=== PATIENT | male | born 1950 | race Caucasian/White ===

== ENCOUNTER → 2019-01-08 12:24 | Outpatient (BNVA) | payer BC, SELFPAY | PROVIDERS: PCP Emergency Medicine; Visit Provider Internal Medicine Cardiovascular Disease | DX: I25.10 Atherosclerotic heart disease of native coronary artery without angina pectoris (principal); I10 Essential (primary) hypertension; E78.2 Mixed hyperlipidemia | CPT/HCPCS: 99213 ==

== ENCOUNTER 2019-08-16 07:00 | Outpatient (CLI) | payer MEDICARE, SELFPAY ==
[2019-08-16 12:19] LABS: Hemoglobin A1C 6.4 % (4.5-6.2)
[2019-08-16 12:28] LABS: Calculated LDL 120 mg/dL; Cholesterol 199 mg/dL (50-200); HDL Cholesterol 38 mg/dL (40-60); Triglyceride 209 mg/dL (30-150)
[2019-08-17 10:48] LABS: PSA, Diagnostic 1.6 ng/mL (0.0-4.5)
== END 2019-08-16 07:20 ==
PROVIDERS: PCP Emergency Medicine; Visit Provider Emergency Medicine
DX: E11.9 Type 2 diabetes mellitus without complications (principal); C61 Malignant neoplasm of prostate
CPT/HCPCS: 36415; 80061; 83036; 84153

== ENCOUNTER 2019-08-25 01:19 | Outpatient (CLI) | payer MEDICARE, SELFPAY ==
--- NOTE | 2019-08-25 06:54 | DI.NM_ITS ---
APPROVED REPORT Exam: Exercise Treadmill Patient Location: Out-Patient Room/Bed: Stress Nurse: Vivien Campbell RN BMI: 34.13 Baseline Rhythm: Sinus bradycardia Indications: CAD Medical History Medical History: CAD s/p stent, HTN, Hyperlipidemia Cardiac Medications: Amlodipine, Aspirin, Atorvastatin/ Lipitor, Losartan Allergies: No known drug allergies Previous Cardiac Procedures: PCI Pretest Chest Pain Characteristics: No chest pain Exercise History: Indeterminate Lung Sounds: Clear to auscultation Heart Sounds: Regular Stress Test Details Test: Exercise stress testing was performed using a Clifford protocol. Nuclear Acquisition: Stress Tc-99m/Stress Tc-99m 1 day Rest Isotope: Tc-99m Sestamibi. Dose: 9.7 Date: 08/25/2019 Injection Time: 0825 Stress Isotope: Tc-99m Sestamibi. Dose: 30.6 Date: 08/25/2019 Injection Time: 1005 HR Max Heart Rate (APMHR): 152 bpm Resting HR Supine: 54 bpm Target HR (85% APMHR): 129 bpm Resting HR Standin bpm Max HR Achieved: 135 bpm % of APMHR: 88 Recovery HR: 75 bpm HR response to stress: Normal HR response to stress BP Resting BP Supine: 162/84 mmHg Resting BP Standin/78 mmHg Max BP: 220/80 mmHg Recovery BP: 162/94 mmHg BP response to stress: Abnormal hypertensive response to stress. ECG Resting ECG: Sinus Bradycardia Ectopy: few PACs Stress ECG: Sinus Tachycardia ST Change: No significant ST segment changes Arrhythmia: few PVCs Recovery ECG: Sinus Rhythm Recovery ST Change: No significant ST segment changes Recovery Arrhythmia: None Clinical Time of Stop for Clifford: 0811 Reason for Termination: Target HR Achieved Stress Symptoms: General Fatigue Exercise duration: 8 min11 sec Highest Stage Achieved: Stage 3: 3.4 mph at 14% grade. Exercise capacity: 9.53 METs Functional Capacity: Average Capacity Stress ECG Conclusion 1. Patient exercised for 8 minutes (9.5 METS) which is average for his age. 2. The test was stopped as target heart rate was achieved. 3. There were no changes on the ECG during stress that were suggestive of ischemia. Protocol Used: Clifford Protocol Stress Test Summary STAGE Time (mins) Speed (mph) Grade (%) HR BP SYMPTOMS METS Supine 54 162/84 Standing 55 160/78 1 3 1.7 10 91 164/82 4.6 2 6 2.5 12 114 172/84 7 3 9 3.4 14 135 10.2 4 12 4.2 16 12.9 5 15 5.0 18 17.2 1 min recovery 111 220/80 3 min recovery 78 190/92 6 min recovery 74 174/82 9 min recovery 75 162/94 MPI Conclusion There was no evidence of ischemia on the imaging portion of this exam Ejection fraction with stress was 55% This is a normal SPECT imaging study. Radiologist Interpretation Radiologist agrees with Jacquard Loom Heddles Tier's Interpretation. Radiologist Interpretation by: Wilbur Cooper MD Interpretation Date/Time: 08/25/2019 15:48:54
== END 2019-08-25 01:39 ==
PROVIDERS: PCP Emergency Medicine; Visit Provider Emergency Medicine
DX: I25.10 Atherosclerotic heart disease of native coronary artery without angina pectoris (principal); I10 Essential (primary) hypertension; E78.5 Hyperlipidemia, unspecified
CPT/HCPCS: 78452; 93017

== ENCOUNTER 2021-01-10 09:59 | Outpatient (CLI) | payer MEDICARE, OTHER, SELFPAY ==
--- NOTE | 2021-01-10 10:38 | DI.CT_ITS ---
EXAM: CT HEAD WO CLINICAL HISTORY: concussion. TECHNIQUE: Imaging Protocol: Axial computed tomography images with coronal and sagittal reformatted images were created and reviewed COMPARISON: No exams were available for comparison FINDINGS: There are no skull fractures nor fluid in the visualized paranasal sinuses. There is some mucosal t hickening evident in the floor of the right maxillary sinus. There is no evidence of intracranial hemorrhage, mass effect, or shift of midline structures. There are no extra-axial fluid collections. The ventricles are not enlarged or shifted and there is no blo od within the ventricular system nor within the basal cisterns. There is some periventricular hypodensity which is probably consistent with chronic small vessel dise ase, slightly more prominent on left side left temporoparietal region. In addition, there is a 7 x 4 millimeter hypodensity in the left supraventricular white matter which is probably a nonhemorrhagic lacunar infarct., age indeterminate. IMPRESSION: White matter changes as described above. No evidence of intracranial hemorrhage. Given the above findings recommend follow-up outpatient MRI RADIATION DOSE DELIVERED: 799.16mGy.cm Total DLP DATA REPOSITORY: All CT scans at this facility are submitted to the National Radiology Data Registry (NRDR) Dose Index Registry (DIR) with the [employer] (ACR). RADIATION OPTIMIZATION: All CT scans at this facility use at least one of these dose optimization te chniques: automated exposure control; mA and/or kV adjustment per patient size (includes targeted exa ms where dose is matched to clinical indication); or iterative reconstruction.
== END 2021-01-10 10:19 ==
PROVIDERS: PCP Emergency Medicine; Visit Provider Emergency Medicine
DX: S06.0X9A Concussion with loss of consciousness of unspecified duration, initial encounter (principal); R90.82 White matter disease, unspecified
CPT/HCPCS: 70450

== ENCOUNTER 2021-01-10 11:58 | Outpatient (REF) | payer MEDICARE, OTHER, SELFPAY ==
[2021-01-10 13:46] LABS: Hemoglobin A1C 6.1 % (<5.7)
[2021-01-10 13:50] LABS: Calculated LDL 104 mg/dL (<100); Cholesterol 188 mg/dL (<200); HDL Cholesterol 38 mg/dL (40-60); Triglyceride 231 mg/dL (<150)
== END 2021-01-10 11:59 | disposition home or self-care (01) ==
LOC: LBN 11:58
PROVIDERS: PCP Emergency Medicine; Visit Provider Emergency Medicine
DX: R73.09 Other abnormal glucose (principal); K76.0 Fatty (change of) liver, not elsewhere classified; E78.2 Mixed hyperlipidemia
CPT/HCPCS: 80061; 83036

== ENCOUNTER 2021-01-19 09:02 | Outpatient (CLI) | payer MEDICARE, OTHER, SELFPAY ==
--- NOTE | 2021-01-19 11:30 | DI.RAD_ITS ---
EXAM: XR KNEE LT 3V AP,LAT,BONNIE CLINICAL HISTORY: Left knee pain/swelling M25.562. TECHNIQUE: 2D digital imaging was performed. COMPARISON: No exams were available for comparison FINDINGS: BONES: No acute fracture is present. No bony destructive lesion is seen. JOINTS: The knee is normally aligned. No joint effusion is seen. Joint spaces are well maintained SOFT TISSUE: Minimal vascular calcifications. IMPRESSION: Normal radiographs of the left knee. DATA REPOSITORY: RADIATION DOSE DELIVERED:
== END 2021-01-19 09:22 ==
PROVIDERS: PCP Emergency Medicine; Visit Provider Nurse Practitioner Family
DX: M25.562 Pain in left knee (principal)
CPT/HCPCS: 73562

== ENCOUNTER → 2021-03-22 08:39 | Outpatient (BNVA) | payer MEDICARE, OTHER, SELFPAY | PROVIDERS: PCP Emergency Medicine; Referring Provider Emergency Medicine; Visit Provider Student in an Organized Health Care Education/Training Program | DX: M17.12 Unilateral primary osteoarthritis, left knee (principal) | CPT/HCPCS: 20610; 99213; J1040 ==

== ENCOUNTER → 2021-08-03 07:20 | Outpatient (BNVA) | payer MEDICARE, OTHER, SELFPAY | PROVIDERS: PCP Emergency Medicine; Referring Provider Emergency Medicine; Visit Provider Physical Therapy Assistant | DX: Z12.11 Encounter for screening for malignant neoplasm of colon (principal) ==

== ENCOUNTER 2021-08-29 02:18 | Outpatient (CLI) | payer MEDICARE, OTHER, SELFPAY ==
[2021-08-29 12:19] LABS: Source Nasal/Nares
[2021-08-29 14:35] LABS: COVID-19 PCR Negative (Negative)
== END 2021-08-29 02:19 | disposition home or self-care (01) ==
LOC: LBO 02:18
PROVIDERS: PCP Emergency Medicine; Visit Provider Surgery
DX: Z20.822 Contact with and (suspected) exposure to COVID-19 (principal)
CPT/HCPCS: 87635

== ENCOUNTER 2021-08-31 06:53 | Day surgery (SDC) | payer MEDICARE, OTHER, SELFPAY ==
--- NOTE | 2021-08-30 17:09 | PDOC.DSDIS_ITS ---
Discharge Plan Disposition Patient Disposition: HOME Condition: Good Discharge Details Reason For Visit: colon scope Attending Provider: Michela Wheeler Primary Care Provider: Patrick Eric Home Meds and New Rx's Prescriptions: Continued multivitamin 1 EACH tablet 1 tab PO DAILY RF: 0 aspirin [Aspirin Low-Strength] 81 MG tablet,chewable 81 mg PO DAILY RF: 0 nitroglycerin [Nitrostat] 0.4 MG tablet, sublingual 0.4 mg Sublingual PRN Qty: 25 RF: 4 metoprolol succinate 100 mg tablet extended release 24 hr 50 mg PO DAILY Qty: 90 RF: 3 amlodipine 10 mg tablet 10 mg PO DAILY Qty: 90 RF: 3 paroxetine HCl 30 mg tablet 30 mg PO DAILY Qty: 90 RF: 3 atorvastatin 80 mg tablet 80 mg PO DAILY Qty: 90 RF: 3 losartan [Cozaar] 100 mg tablet 100 mg PO DAILY Qty: 90 RF: 3 Discontinued polyethylene glycol 3350 17 gram/dose powder 238 g PO ONCE Qty: 238 RF: 0 bisacodyl [Dulcolax (bisacodyl)] 5 mg tablet,delayed release (DR/EC) 5 mg PO ONCE Qty: 4 RF: 0 Discharge Instructions Additional Instructions: [facility] Colonoscopy Post- Op Instructions Instructions for Everyone who is given Anesthesia: For your safety, please do the following for the next twenty-four (24) hours: *Do Not operate a motor vehicle (car, truck, motorcycle, etc.) *Do Not drink alcoholic beverages or use any recreational drugs for the first 24 hours or while taking pain medications. The medications in your body may have a reaction that can be dangerous. *Do Not make any important decisions or sign any important papers. Findings:diverticula Follow up: Does not require any further colonoscopies, unless you experience unexplained weight loss, rectal bleeding, or changes in your bowel habits. 1. No lifting over 20 pounds or strenuous activity for the first 24 hours after your procedure. After 24 hours there are no restrictions on your activity but you may feel fatigued for a few days. 2. After you arrive home you may have a light meal and return to your normal diet as you can tolerate it without feeling sick to your stomach. 3. You may have a bloated, gaseous feeling in your belly (abdomen) after a colonoscopy. Passing gas and belching will help. Walking or lying down on your left side with your knees flexed may relieve the discomfort. Call the office at [phone] (Office) or [phone] (Hospital) right away if you notice any of the following: a.Vomiting of blood or ?coffee ground stools?. b.Rectal bleeding 1Tbsp, blood clots or continuous bleeding. c.Severe belly (abdominal) pain. d.A hard distended belly (abdomen) and an inability to pass gas. 4. Please don?t expect to have a normal BM (bowel movement) for 2-3 days after your procedure. 5. If there are questions regarding the findings of your procedure, please contact your doctor 6. If you are unable to contact your doctor with a problem, contact the hospital at [phone]. 7. Continue all your regular medications unless directed otherwise. I understand the above instructions and have no questions. Signature of Patient or Adult Escort Name of Responsible Adult Escort Signature of Nurse Date/Time Activity:: see above Diet:: see above Discharge Orders Discharge Orders: Discharge Order (Routine); Ordered 08/30/21 Ordered By: Michela Wheeler DS: Diagnosis Discharge Diagnosis (1) Diverticulosis: Status: Acute (2) Internal hemorrhoid: Status: Acute
--- NOTE | 2021-08-30 17:11 | W.COLOREPORT ---
Colonoscopy Report Date of procedure: 08/31/21 Pre-op diagnosis general: CRC screen Post-op diagnosis procedure note: other (diverticula ) Surgeon: Michela Wheeler Anesthesia Type: General LMA/ETT Pathology: none sent Complications: None Disposition: same day Prep: Miralax/Dulcolax Retraction Time: 8 Procedure Description: After informed consent was obtained the patient was taken to the procedure room and placed in a left decubitous position. Monitors were applied and a time out was done. The patients name, date of , procedure, allergies to medications and metal in their body was reviewed. The patient was then sedated. Once sedated and comfortable a rectal exam was done. External exam shows external hemorrhoidal tags. The internal exam revealed a normal sphincter tone and no palpable masses. The scope was then introduced and retrofelexed. Grade I internal hemorrhoids were identified. The scope was then advanced to the cecum w/out difficulty. The TI and appendiceal orifice were identified. The prep was good. The scope was then slowly retracted over 8 minutes back into the rectum. There are no polyps or AVMs. He has moderate diverticula confined to the sigmoid colon with no signs of active bleeding or infection. The scope was removed and the patient was woken up and taken back to Same day surgery in stable condition. The patient tolerated the procedure well and there were no immediate complications. Follow up: The patient does not require any further screening colonoscopies, unless they develop changes in bowel habits or other new gastrointestinal complaints.
[2021-08-31 07:13] VITALS: BP 140/84; PULSE 64; RESP 17; TEMP 36; O2SAT 95
[2021-08-31] MEDS: Lactated Ringers 1,000 ML 80 ML IV (07:43)
--- NOTE | 2021-08-31 07:47 | W.ANESPRE ---
General Info Date of Service Date Performed: 08/31/21 Height: 5 ft 7 in Weight: 99.6 kg Body Mass Index (BMI): 34.4 Surgical Procedure: Operation Date: 08/31/21 08:20 Proposed Procedures Side Surgeon ralph Wheeler, DO Meds Allergies and Home Medications Allergies Allergy/AdvReac Type Severity Reaction Status Date / Time No Known Allergies Allergy Verified 08/31/21 07:25 Home Medication Medication Instructions Recorded multivitamin 1 tab PO DAILY 02/16/13 aspirin [Aspirin Low-Strength] 81 mg PO DAILY tab-cap 06/15/14 nitroglycerin [Nitrostat] 0.4 mg SUBLINGUAL PRN #25 tab 11/04/17 metoprolol succinate 100 mg 50 mg PO DAILY #90 tab 02/14/20 tablet,extended release 24 hr amlodipine 10 mg tablet 10 mg PO DAILY #90 tab-cap 02/28/21 paroxetine HCl 30 mg tablet 30 mg PO DAILY #90 tab 02/28/21 atorvastatin 80 mg tablet 80 mg PO DAILY #90 tab 06/21/21 losartan 100 mg tablet 100 mg PO DAILY #90 tab-cap 08/10/21 Current Visit Medications: Current Medications Generic Name Dose Route Start Last Admin Trade Name Freq PRN Reason Stop Dose Admin Hyoscyamine Sulfate 0.125 mg 08/30/21 17:08 Hyoscyamine 0.125 Mg Sl/Oral/Chew SL DIRECTED PRN Ringer's Solution 1,000 mls @ 80 mls/hr 08/31/21 06:00 08/31/21 07:43 IV 09/29/21 23:59 80 mls/hr INFUSION KM Administration IV Miscellaneous Supplies 1 each 08/31/21 06:00 Iv Access IV 09/29/21 23:59 DIRECTED KM Ondansetron HCl 4 mg 08/30/21 17:08 Ondansetron 4 Mg/2 Ml Vial IVP Q4H PRN PRN Nausea / Vomiting Sodium Chloride 0 ml 08/31/21 06:00 Normal Saline Flush 10 Ml Syr IV 09/29/21 23:59 PRN PRN Sodium Chloride 0 ml 08/31/21 06:00 Normal Saline 10 Ml Vial IJ 09/29/21 23:59 DIRECTED PRN Sterile Water 0 ml 08/31/21 06:00 Water,Injection,Sterile 10 Ml Vial IJ 09/29/21 23:59 DIRECTED PRN [facility] Active Problems Active Problems: Problem Status Onset Code Heavy alcohol use 09/21/13 Z78.9 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 10/22/17 I83.90 Sciatica, left side 11/04/17 M54.32 Non-alcoholic fatty liver disease 09/21/13 K76.0 Hyperlipidemia E78.5 Gout, unspecified 08/20/16 M10.9 Gastroesophageal reflux disease without esophagitis 10/22/17 K21.9 GERD (gastroesophageal reflux disease) 09/21/13 K21.9 Essential hypertension 07/12/13 I10 Diverticulosis K57.90 Depressive disorder F32.9 Atherosclerosis of [place] coronary artery I25.10 Elevated glucose R73.09 Obesity (BMI 30-39.9) E66.9 Concussion S06.0X9A Primary osteoarthritis of left knee M17.12 Medical History Active Problem List (Updated 08/31/21 @ 08:06 by Karolina Voss RN) Heavy alcohol use (Acute 09/21/13) Varicosities of leg (Acute 09/21/13) Varicosities of leg (Acute 10/22/17) Sciatica, left side (Acute 11/04/17) Non-alcoholic fatty liver disease (Acute 09/21/13) Hyperlipidemia (Acute) Gout, unspecified (Acute 08/20/16) Gastroesophageal reflux disease without esophagitis (Acute 10/22/17) GERD (gastroesophageal reflux disease) (Acute 09/21/13) Essential hypertension (Acute 07/12/13) Diverticulosis (Acute) Depressive disorder (Acute) Atherosclerosis of [place] coronary artery (Acute) Elevated glucose (Acute) Obesity (BMI 30-39.9) (Acute) Concussion (Acute) Primary osteoarthritis of left knee (Acute) Medical History (Updated 08/31/21 @ 08:06 by Karolina Voss RN) HTN (hypertension) Surgical History Surgical History Colonoscopy - MAC 2009 Extraction of cataract 08/27/17 (OD) 08/11/17 (OS) History of back surgery Hx of heart artery stent thumb surgery Surgical revision of DJD of both thumbs. Tobacco Smoking/Tobacco Use Status: Never Passive smoking exposure: Yes Second hand exposure: Yes Alcohol Alcohol Intake: current Alcohol intake frequency: a few times a week Alcohol type: beer Substance Use Substance use: Never Substance use type: does not use Vital Signs and Lab Results Vital Signs Most Recent Vital Signs in EMR: Most Recent Vital Signs Temp Pulse Resp BP Pulse Ox 36.0 C L 64 17 140/84 95 08/31/21 07:13 08/31/21 07:13 08/31/21 07:13 08/31/21 07:13 08/31/21 07:13 Lab Results Blood Type / Crossmatch: No Data to Display Complete Blood Count: No Data to Display Complete Metabolic Panel: No Data to Display Liver Function Panel: No Data to Display Coagulation Panel: No Data to Display Cardiac Panel: No Data to Display Arterial Blood Gas: No Data to Display Venous Blood Gas: No Data to Display Pancreas Panel: No Data to Display Thyroid Panel: No Data to Display Infectious Disease: Coronavirus (COVID-19)(PCR) Negative (Negative) 08/29/21 08:35 08/29/21 Coronavirus 2019 Source Nasal/Nares 08/29/21 08:35 08/29/21 Blood Cultures: No Data to Display Toxicology Panel: No Data to Display Imaging and Studies Imaging and Studies Stress Test Summary: Stress ECG Conclusion 1. Patient exercised for 8 minutes (9.5 METS) which is average for his age. 2. The test was stopped as target heart rate was achieved. 3. There were no changes on the ECG during stress that were suggestive of ischemia. 08/25/19 Anesthesia Assessment and Plan Anesthesia History Personal History: No History of Anesthesia Complications Family History: No Family History of Anesthesia Complications Exercise Tolerance Exercise Tolerance: Metabolic Equivalents>4 Pertinent Negatives Pertinent Negatives: No Symptoms of GERD, No Major Cardiovascular Symptoms or Complaints (Hx of stents greater than 2 years ago. ) and No Major Pulmonary Symptoms or Complaints Cardiac & Pulmonary Exam Cardiac Exam: Normal S1/S2 Heart Sounds Pulmonary Exam: Clear Bilateral Breath Sounds Implantable Cardiac Device Does patient have a Pacemaker or an ICD?: No Airway Exam Known Difficult Airway: No Mallampati Class: 2 Mouth Opening: Normal (> 3cm) Thyromental Distance: Greater than 3 cm Neck Range of Motion: Full ROM Neck Circumference: Normal Teeth Condition: Normal Dentition ASA Classification ASA Score: ASA 2 Emergency Case?: No NPO Status NPO Status: NPO Clears >2 hours, Solids >8 hours Anesthesia Plan Resuscitation Status: Full Code Anesthesia Technique: General Anesthesia Airway Planned: Natural Airway Monitors Used: Standard Monitors
[2021-08-31 08:08] VITALS: BMI 34.4
[2021-08-31 08:44] VITALS: BP 103/72; PULSE 58; RESP 18; TEMP 36.3; O2SAT 94
--- NOTE | 2021-08-31 09:00 | W.ANESPOSTOP ---
Postoperative Evaluation Date, Time and Location Date Performed: 08/31/21 Time Performed: 08:44 Patient Location: Day Surgery Unit Vital Signs Most Recent Imported Vital Signs: Most Recent Vital Signs Temp Pulse Resp BP Pulse Ox 36.3 C L 58 L 18 103/72 94 08/31/21 08:44 08/31/21 08:44 08/31/21 08:44 08/31/21 08:44 08/31/21 08:44 Pain Score Most Recent Pain Score: Most Recent Pain Score Pain Level 0 08/31/21 08:44 Assessment Mental Status: Awake (Alert & Oriented to Patient Baseline) Airway and Respiratory Function: Patent airway with normal (patient baseline) respiratory exam Cardiovascular Function: Hemodynamically Stable Hydration Status: Adequately Hydrated Nausea & Vomiting: No Nausea or Vomiting Pain: Pt. Denies Any Pain Peripheral Nerve Block: Patient did not receive a nerve block
[2021-08-31 09:20] VITALS: BP 119/82; PULSE 61; RESP 17; TEMP 36.8; O2SAT 95
--- NOTE | 2021-08-31 11:35 | NUR.NOTE ---
Nursing Note:Pt dropped his Nitro bottle in the [facility] bathroom. Pt was called and he asked if we could just discard them, as he had more at home and these he had had them forever. Pt stated he always takes a bottle when he goes out. Pt did verbalize he had another bottle in my hand at home.
== END 2021-08-31 09:42 | disposition home or self-care (01) ==
LOC: SUR 06:54
PROVIDERS: PCP Emergency Medicine; Visit Provider Surgery
PROC: 0DJD8ZZ Inspection of Lower Intestinal Tract, Via Natural or Artificial Opening Endoscopic (ICD-10-PCS; CPT 45378; principal; 2021-08-31 08:15)
DX: Z12.11 Encounter for screening for malignant neoplasm of colon (principal); K57.30 Diverticulosis of large intestine without perforation or abscess without bleeding; K21.9 Gastro-esophageal reflux disease without esophagitis; K76.0 Fatty (change of) liver, not elsewhere classified; R73.9 Hyperglycemia, unspecified
CPT/HCPCS: G0105; J2001

== ENCOUNTER → 2021-12-27 10:26 | Outpatient (BNVA) | payer MEDICARE, OTHER, SELFPAY | PROVIDERS: PCP Emergency Medicine; Referring Provider Emergency Medicine; Visit Provider Internal Medicine Cardiovascular Disease | DX: I10 Essential (primary) hypertension (principal); I25.10 Atherosclerotic heart disease of native coronary artery without angina pectoris | CPT/HCPCS: 99213 ==

== ENCOUNTER 2022-06-19 08:26 | Outpatient (CLI) | payer MEDICARE, SELFPAY ==
[2022-06-19 12:37] LABS: Anion Gap 7.9 mmol/L (3-11); BUN 18 mg/dL (7-18); CO2 30.1 mmol/L (21.0-32.0); CREATININE 1.2 mg/dL (0.70-1.30); Calcium 9.4 mg/dL (8.5-10.1); Calculated LDL 93 mg/dL (<100); Chloride 102 mmol/L (98-107); Cholesterol 185 mg/dL (<200); Estimated GFR 64.65 (mL/min/1.73m2); Glucose 112 mg/dL (74-106); HDL Cholesterol 42 mg/dL (40-60); Potassium 4.6 mmol/L (3.5-5.1); Sodium 140 mmol/L (136-145); Triglyceride 252 mg/dL (<150)
[2022-06-19 13:01] LABS: Hemoglobin A1C 6.1 % (<5.7)
[2022-06-20 09:43] LABS: ALT 53 U/L (16-63); AST 39 U/L (15-37); Albumin 4.1 g/dL (3.4-5.0); Alkaline Phosphatase 39 U/L (46-116); Bilirubin, Total 0.5 mg/dL (0.2-1.0); Total Protein 8.2 g/dL (6.4-8.2)
== END 2022-06-19 08:27 | disposition home or self-care (01) ==
PROVIDERS: PCP Family Medicine; Visit Provider Family Medicine
DX: E78.5 Hyperlipidemia, unspecified (principal); I10 Essential (primary) hypertension; R73.9 Hyperglycemia, unspecified
CPT/HCPCS: 36415; 80048; 80053; 80061; 83036

== ENCOUNTER 2022-12-27 08:30 | Outpatient (CLI) | payer OTHER, SELFPAY ==
--- NOTE | 2022-12-27 08:30 | RT.EKG_ITS ---
APPROVED REPORT Exam: Resting ECG Reason for Exam: CAD Patient Location: O HR:57 bpm ECG Measurements Heart Rate 57 AXIS NM 173 P 32 QRSd 94 QRS 12 QT 426 T 0 QTc 415 Conclusion Sinus rhythm...normal P axis, V-rate 50- 99 Normal Electrocardiogram
== END 2022-12-27 08:31 | disposition home or self-care (01) ==
LOC: DI.CARD 08:31
PROVIDERS: PCP Family Medicine; Visit Provider Internal Medicine Cardiovascular Disease
DX: I25.10 Atherosclerotic heart disease of native coronary artery without angina pectoris (principal)
CPT/HCPCS: 93010

== ENCOUNTER → 2022-12-27 10:28 | Outpatient (BNVA) | payer OTHER, SELFPAY | PROVIDERS: PCP Family Medicine; Visit Provider Internal Medicine Cardiovascular Disease | DX: Z95.5 Presence of coronary angioplasty implant and graft (principal); I10 Essential (primary) hypertension; E78.2 Mixed hyperlipidemia; I25.10 Atherosclerotic heart disease of native coronary artery without angina pectoris | CPT/HCPCS: 93005; 99214 ==

== ENCOUNTER → 2023-05-07 01:56 | Outpatient (CLI) | payer OTHER, SELFPAY ==
--- NOTE | 2023-05-07 08:50 | DI.MRI_ITS ---
Exam(s) MR UPPER JOINT LT WO EXAM: MR UPPER JOINT LT WO CLINICAL HISTORY: evaluate pathology,biceps tendon rupture, [id number],strain. TECHNIQUE: Multiplanar multisequence MRI was performed. COMPARISON: Most recent plain film is 21 April 2017 FINDINGS: Exam is limited by patient motion. BONES: There is no fracture or contusion pattern. JOINTS:The acromioclavicular joint shows mild spurring. The acromion is laterally downsloping. The glenohumeral joint shows mild degenerative changes. TENDONS: Supraspinatus: Some thickening consistent with tendinosis. Tear of the anterior portion of the tendo n distally near the insertion. Infraspinatus: Unremarkable. Subscapularis: Unremarkable. Teres Minor: Unremarkable. Biceps and Reinbeck: The biceps anchor appears indistinct. The majority of the long head of the biceps tendon is not visible consistent with full-thickness tear and retraction, at of the field of view. Fluid within tendon sheath. Short head of the biceps tendon appears intact. MUSCLES: Unremarkable. GLENOID LABRUM: Unremarkable on this noncontrast examination. SOFT TISSUES: Unremarkable. OTHER: Subacromial and subdeltoid bursae . Fluid in the subcoracoid bursa and around subscapularis muscle. IMPRESSION: Proximal biceps tendon rupture. Focal tear distal anterior portion of the supraspinatus tendon. Supraspinatus tendinosis DATA REPOSITORY:
== END ==
PROVIDERS: PCP Family Medicine; Visit Provider Nurse Practitioner Family
DX: S46.012A Strain of muscle(s) and tendon(s) of the rotator cuff of left shoulder, initial encounter (principal); S46.122A Laceration of muscle, fascia and tendon of long head of biceps, left arm, initial encounter; X58.XXXA Exposure to other specified factors, initial encounter
CPT/HCPCS: 73221

== ENCOUNTER 2023-05-28 16:04 | Outpatient (CLI) | payer OTHER, SELFPAY ==
--- NOTE | 2023-05-28 14:57 | DI.RAD_ITS ---
Exam(s) XR SHOULDER LT COMPLETE 2+V EXAM: XR SHOULDER LT COMPLETE 2+V CLINICAL HISTORY: shoulder f/u. TECHNIQUE: 2D digital imaging was performed. Two views. COMPARISON: CR LEFT SHOULDER COMPLETE from 04/21/2017 CR CHEST 2 VIEWS PA,LAT from 12/23/2017 MR MR UPPER JOINT LT WO from 05/07/2023 FINDINGS: BONES: No acute fracture is present. No bony destructive lesion is seen. And JOINTS: No dislocation present. Degenerative changes at the acromial clavicular joint with adjacent inferior bony density. Some spurring at the tip of the acromion. Anterior projection of the distal 3rd adjacent bony density, also unchanged. Mild spurring at the glenoid. Glenohumeral joint space i s maintained. SOFT TISSUE: Normal. IMPRESSION: Stable degenerative changes. DATA REPOSITORY: RADIATION DOSE DELIVERED:
== END 2023-05-28 16:05 | disposition home or self-care (01) ==
LOC: DIORS 16:04
PROVIDERS: PCP Family Medicine; Referring Provider Family Medicine; Visit Provider Student in an Organized Health Care Education/Training Program
DX: S46.212D Strain of muscle, fascia and tendon of other parts of biceps, left arm, subsequent encounter; X58.XXXD Exposure to other specified factors, subsequent encounter; M75.102 Unspecified rotator cuff tear or rupture of left shoulder, not specified as traumatic
CPT/HCPCS: 99203; 99213; 73030

== ENCOUNTER → 2023-09-03 13:02 | Outpatient (BNVA) | payer OTHER, SELFPAY | PROVIDERS: PCP Family Medicine; Referring Provider Family Medicine; Visit Provider Student in an Organized Health Care Education/Training Program | DX: S46.212D Strain of muscle, fascia and tendon of other parts of biceps, left arm, subsequent encounter (principal); X58.XXXD Exposure to other specified factors, subsequent encounter; M75.102 Unspecified rotator cuff tear or rupture of left shoulder, not specified as traumatic | CPT/HCPCS: 20610; J1030 ==

== ENCOUNTER 2023-10-24 01:56 | Outpatient (CLI) | payer OTHER, SELFPAY ==
[2023-10-24 12:57] LABS: Abs Immature Grans 0.01 10^3/uL (0.0-0.06); Absolute Basophil Count 0.04 10^3/uL (0.0-0.2); Absolute Eosinophil Count 0.33 10^3/uL (0.0-0.7); Absolute Lymphocyte Count 2.25 10^3/uL (1.2-3.4); Absolute Monocyte Count 0.84 10^3/uL (0.1-0.8); Absolute Neutrophil Count 2.67 10^3/uL (1.2-6.7); Basophils % 0.7; Eosinophils % 5.4; HCT 41.3 % (40.0-50.0); HGB 14.4 g/dL (13.5-17.5); Immature Grans % 0.2; Lymphocytes % 36.6; MCHC 34.9 % (32.0-36.0); MCV 95 fL (80-95); MPV 9.4 fL (8.0-11.0); Monocytes % 13.7; Neutrophils % 43.4; Platelet Count 209 10^3/uL (130-400); RBC 4.36 10^6/uL (4.36-5.78); RDW 12.4 % (11.8-14.1); RDW-SD 42.9 fL; WBC 6.14 10^3/uL (4.4-10.8)
[2023-10-24 13:07] LABS: Hemoglobin A1C 6.1 % (<5.7)
[2023-10-24 13:43] LABS: ALT 52 U/L (16-63); AST 35 U/L (15-37); Albumin 3.8 g/dL (3.4-5.0); Alkaline Phosphatase 45 U/L (46-116); Anion Gap 7.8 mmol/L (3-11); BUN 18 mg/dL (7-18); Bilirubin, Total 0.5 mg/dL (0.2-1.0); CO2 30.2 mmol/L (21.0-32.0); CREATININE 1.1 mg/dL (0.70-1.30); Calcium 9.6 mg/dL (8.5-10.1); Chloride 104 mmol/L (98-107); Estimated GFR 71.32 (mL/min/1.73m2); Glucose 119 mg/dL (74-106); Potassium 4.2 mmol/L (3.5-5.1); Sodium 142 mmol/L (136-145); Total Protein 7.8 g/dL (6.4-8.2)
== END 2023-10-24 01:57 | disposition home or self-care (01) ==
LOC: LBO 01:56
PROVIDERS: PCP Family Medicine; Visit Provider Family Medicine
DX: E11.51 Type 2 diabetes mellitus with diabetic peripheral angiopathy without gangrene (principal); I70.209 Unspecified atherosclerosis of native arteries of extremities, unspecified extremity; R10.9 Unspecified abdominal pain; D64.9 Anemia, unspecified
CPT/HCPCS: 36415; 80053; 83036; 85025

== ENCOUNTER 2023-11-16 12:43 | Observation (INO) | payer OTHER, SELFPAY ==
[2023-11-16] VITALS (36 sets, daily range): BP systolic 131–177; BP diastolic 70–88; PULSE 57–79; RESP 16–20; TEMP 36.6–37.1; O2SAT 92–98
[2023-11-16 15:55] LABS: Abs Immature Grans 0.01 10^3/uL (0.0-0.06); Absolute Basophil Count 0.03 10^3/uL (0.0-0.2); Absolute Eosinophil Count 0.27 10^3/uL (0.0-0.7); Absolute Lymphocyte Count 2.11 10^3/uL (1.2-3.4); Absolute Monocyte Count 0.93 10^3/uL (0.1-0.8); Basophils % 0.5; Eosinophils % 4.1; HCT 40.1 % (40.0-50.0); HGB 13.7 g/dL (13.5-17.5); Immature Grans % 0.2; Lymphocytes % 31.7; MCH 32.4 pg (27.0-33.0); MCHC 34.2 % (32.0-36.0); MCV 95 fL (80-95); MPV 9.2 fL (8.0-11.0); Neutrophils % 49.5; Platelet Count 203 10^3/uL (130-400); RBC 4.23 10^6/uL (4.36-5.78); RDW 12.2 % (11.8-14.1); RDW-SD 42.5 fL; WBC 6.65 10^3/uL (4.4-10.8)
[2023-11-16 15:59] LABS: ESR 9 mm/hr (0-20)
--- NOTE | 2023-11-16 16:15 | RT.EKG_ITS ---
APPROVED REPORT Exam: Resting ECG Reason for Exam: sob Patient Location: E HR:61 bpm ECG Measurements Heart Rate 61 AXIS MD 184 P 52 QRSd 92 QRS 10 QT 428 T 9 QTc 431 Conclusion Sinus rhythm normal axis no stemi
[2023-11-16 16:18] LABS: ALT 48 U/L (16-63); AST 41 U/L (15-37); Albumin 3.9 g/dL (3.4-5.0); Alkaline Phosphatase 47 U/L (46-116); Anion Gap 9.4 mmol/L (3-11); BUN 18 mg/dL (7-18); Bilirubin, Total 0.6 mg/dL (0.2-1.0); CO2 29.6 mmol/L (21.0-32.0); CREATININE 1.1 mg/dL (0.70-1.30); Chloride 102 mmol/L (98-107); Estimated GFR 71.32 (mL/min/1.73m2); Glucose 125 mg/dL (74-106); Magnesium 2.2 mg/dL (1.8-2.4); Potassium 4.1 mmol/L (3.5-5.1); Sodium 141 mmol/L (136-145); Total Protein 7.8 g/dL (6.4-8.2)
[2023-11-16 16:21] LABS: Troponin I 85 ng/L (< or =60)
[2023-11-16 16:24] LABS: NT-proBNP 74 pg/mL (<300)
[2023-11-16 16:25] LABS: C-Reactive Protein < 0.50 mg/dL (<or=0.5)
--- NOTE | 2023-11-16 16:30 | DI.CT_ITS ---
Exam(s) CT CHEST PE CTA EXAM: CT CHEST PE CTA CLINICAL HISTORY: sob. TECHNIQUE: Imaging Protocol: Axial CT angiography was performed with multi-slice acquisition and mu lti-planar and/or 3D reconstructions. CONTRAST MATERIAL: Intravenous: Omnipaque 350 contrast volume:85 mL COMPARISON: CT THORACIC SPINE WO CONTRAST from 10/19/2014 FINDINGS: Tracheobronchial tree: Patent where visualized. Pulmonary parenchyma: No consolidation or dominant measurable mass. There is atelectasis in the lung bases. Pulmonary Arteries: The peripheral pulmonary arteries are poorly opacified. No large central pulmona ry embolus is seen. Mediastinum and [place]: No dominant adenopathy or fluid collection. The esophagus is unremarkable. Visualized thyroid gland: Unremarkable. Pleura: No effusion or pneumothorax. Heart: The heart is not dilated. Coronary artery calcifications are present. No pericardial effusion . Aorta: Thoracic aorta non-dilated. Atherosclerosis is present. Upper abdomen: Unremarkable. Soft tissues: Unremarkable. Bones: Within normal limits for the patient's age. IMPRESSION: 1. There is no evidence of a pulmonary embolism or thoracic aortic aneurysm. 2. Mild basilar atelectasis in the lungs bilaterally. RADIATION DOSE DELIVERED: 499.75mGy.cm Total DLP DATA REPOSITORY: All CT scans at this facility are submitted to the National Radiology Data Registry (NRDR) Dose Index Registry (DIR) with the [employer] (ACR). RADIATION OPTIMIZATION: All CT scans at this facility use at least one of these dose optimization te chniques: automated exposure control; mA and/or kV adjustment per patient size (includes targeted exa ms where dose is matched to clinical indication); or iterative reconstruction.
[2023-11-16 16:33] LABS: D-Dimer 654 ng/mlFEU (<500)
[2023-11-16] MEDS: Aspirin 325 MG TAB PO (16:37)
[2023-11-16] MEDS: Normal Saline - Diluent 50 ML VIAL IJ (16:58)
[2023-11-16] MEDS: Omnipaque 350 MG/ML 100 ML BTL IJ (17:03)
--- NOTE | 2023-11-16 17:45 | RT.EKG_ITS ---
APPROVED REPORT Exam: Resting ECG Reason for Exam: CHEST PAIN Patient Location: E HR:58 bpm ECG Measurements Heart Rate 58 AXIS AK 181 P 48 QRSd 89 QRS 25 QT 429 T 20 QTc 421 Conclusion Sinus bradycardia 58 normal axis no stemi
--- NOTE | 2023-11-16 17:46 | DI.VRAD_ITS ---
PROCEDURE INFORMATION: Exam: CTA Chest With Contrast Exam date and time: 11/16/2023 5:08 PM Age: 73 years old Clinical indication: Shortness of breath TECHNIQUE: Imaging protocol: Computed tomographic angiography of the chest with contrast. Exam focused on the arteries. 3D rendering (Not supervised by radiologist): MIP and/or 3D reconstructed images were created by the technologist. Contrast material: 350; Contrast volume: 85 ml; Contrast route: INTRAVENOUS (IV); COMPARISON: CR CHEST 2 VIEWS PA,LAT 12/23/2017 10:28 AM FINDINGS: Pulmonary arteries: No evidence of pulmonary embolus. Aorta: Mild amount of atherosclerotic calcification of the thoracic aorta. No aneurysm. No dissection. Lungs: No consolidation. No lung nodules. Pleural spaces: No pneumothorax. No pleural effusion. Heart: No cardiomegaly. No pericardial effusion. Coronary arteries: Coronary artery calcifications. Lymph nodes: Unremarkable. No enlarged lymph nodes. Bones/joints: Degenerative changes in the thoracic spine. No acute bone findings. Soft tissues: Unremarkable. IMPRESSION: No evidence of pulmonary embolus or other acute findings Dictated and Authenticated by: Parth Munguia MD. Ordering:RADHA Jimenez MD
[2023-11-16] MEDS: Acetaminophen 500 MG TAB 1000 MG PO (18:02)
[2023-11-16 18:43] LABS: Troponin I 83 ng/L (< or =60)
--- NOTE | 2023-11-16 19:28 | W.PM.HP.N ---
Date of service: 11/16/23 Time of Service: 23:19 Assessment and Plan Assessment and plan (1) Elevated troponin: Status: Acute Assessment and plan: Mild troponin elevation with no significant EKG changes. Patient has known coronary artery disease with 2 previous stents. Will cycle his troponins and plan for echocardiogram stress test in the morning. Symptoms sound suspicious for exertional angina Professional time spent interviewing and examining patient, discussion of goals of care with hospital team (care management, nursing and consulting professionals) was 60 minutes. (2) Chest pain: Status: Acute Assessment and plan: Patient is currently free of any chest discomfort. Will plan for echocardiogram and stress MPI in the morning. Given his shingles we will we will do a treadmill but we will plan for Lexiscan stress MPI. Qualifiers: Chest pain type: chest pain due to myocardial ischemia Ischemic chest pain type: stable angina pectoris Qualified Code(s): I20.89 - Other forms of angina pectoris (3) Shingles: Status: Acute Assessment and plan: Start valacyclovir 1000 mg p.o. 3 times daily, start gabapentin 300 mg p.o. 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 Nevertheless will treat him with Lovenox and obtain an ultrasound of his legs in the morning. (5) CAD (coronary artery disease): Status: Chronic Assessment and plan: Workup as above Qualifiers: Coronary Disease-Associated Artery/Lesion type: [place] artery [place] vs. transplanted heart: [place] heart Associated angina: with stable angina Qualified Code(s): I25.118 - Atherosclerotic heart disease of [place] coronary artery with other forms of angina pectoris (6) Elevated glucose: Status: Acute Assessment and plan: He appears to be prediabetic. Last glycohemoglobin A1c 6.1% as of October 24, 2023 will monitor his blood sugars BID while hospitalized and cover with insulin as needed. (7) Essential hypertension: Status: Acute Assessment and plan: Continue home medications of amlodipine, losartan/hydrochlorothiazide, Toprol History of Present Illness History of Present Illness Chief Complaint: right leg pain and swelling Narrative: 73-year-old male non-smoker with a history of coronary artery disease with 2 previous coronary stents first 1 about 10 to 12 years ago. He presents emergency department with acute onsets of right leg pain and swelling. Patient has no varicose veins but developed a rash on his right posterior lateral thigh he said it started out looking like pimples and became blisters and now they are painful and burning. But the same time he noticed some swelling in his right calf. He also endorses recent symptoms of exertional chest pain and pressure noticed when he was cranking down the legs on his tractor trailer. 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 No exertional chest pain and pressure has happened a couple times in the last week has been quickly relieved with rest. He has not required any of his nitroglycerin. Workup in the emergency department revealed what appeared to be crusting lesions consistent with zoster of his right posterior mid thigh but he also has some painful spots in the lower right calf. Workup emergency department included routine labs and EKG and a CT scan of his chest. D-dimer was obtained and found to be within his age acceptable limits of 654. CBC was unremarkable. Chemistry panel was remarkable for glucose of 125 and an AST of 41 and troponin level of 85. CRP is less than 0.5. Subsequent troponins have been obtained and have declined further at 83 and 70. ECG was obtained and demonstrated normal sinus rhythm was sinus bradycardic rate of 57 bpm no acute ischemic ST or T wave changes. Subsequent ECG was obtained shows sinus rhythm with a rate of 66 bpm again no acute ischemic ST or T wave changes. Does have paired ventricular premature complexes. CT of the chest was performed and showed no evidence of pulmonary embolism or thoracic aortic aneurysm. He has mild bibasilar atelectasis. Patient is admitted on observation status plans for venous duplex of his legs in the morning to rule out DVT in the right leg. He will also get an echocardiogram be scheduled for a chemical stress test. For his zoster he will be started on valacyclovir 1000 mg TID along with gabapentin 300 mg p.o. twice daily. Review of Systems All systems reviewed & are unremarkable except as noted in HPI and below PFSH All Active Problems (Updated 11/16/23 @ 23:16 by Jameson Calvin MD) Chest pain (Acute) Elevated troponin (Acute) Shingles (Acute) Right leg swelling (Acute) Rupture of left proximal biceps tendon (Acute) Left rotator cuff tear (Acute) CAD (coronary artery disease) (Chronic) Blood in urine (Acute) BPH (benign prostatic hyperplasia) (Chronic) Elevated glucose (Acute) Internal hemorrhoid (Acute) Heavy alcohol use (Acute 09/21/13) Varicosities of leg (Acute 09/21/13) Varicosities of leg (Acute 10/22/17) Sciatica, left side (Acute 11/04/17) Non-alcoholic fatty liver disease (Acute 09/21/13) Hyperlipidemia (Acute) Gout, unspecified (Acute 08/20/16) Gastroesophageal reflux disease without esophagitis (Acute 10/22/17) GERD (gastroesophageal reflux disease) (Acute 09/21/13) Essential hypertension (Acute 07/12/13) Diverticulosis (Acute) per colonoscopy 2009 Depressive disorder (Acute) Atherosclerosis of [place] coronary artery (Acute) [place] 2006. Cath with mod diffuse disease stent 2014 Elevated glucose (Acute) Obesity (BMI 30-39.9) (Acute) Concussion (Acute) Primary osteoarthritis of left knee (Acute) Steroid injection: 03/22/2021 Medical History HTN (hypertension) Surgical History Hx of heart artery stent History of back surgery thumb surgery Surgical revision of DJD of both thumbs. Colonoscopy - MAC (~08/31/21) 2009 2020-Stoiber, Normal PRN Extraction of cataract 08/27/17 (OD) 08/11/17 (OS) Family History Mother Myocardial infarction Father Personal history of malignant neoplasm LUNG Brother Myocardial infarction Social History Smoking/Tobacco Use Status: Never Second Hand Exposure: Yes Smoking risk assessment performed?: Yes Alcohol Intake: current Alcohol Intake frequency: a few times a week Alcohol type: beer Drug use: Never Substance use type: does not use Household members: spouse Housing: house Communication Needs: None Do you need help understanding health information?: Rarely Pets and animals: Yes Pets and animals: dog(s) Sexually active: No Do you think of yourself as: straight/heterosexual Current gender identity: male What is your relationship status?: How often do you talk on the phone with friends or family?: twice per week How often do you get together with friends or relatives?: once per week How often do you attend zoroastrianism or rastafarian services?: 1-3 times per year Do you belong to any clubs or organized social groups?: no Panel score (0-1 are the most socially isolated patients): 2 What type of physical activity do you participate in: none Frequency: does not exercise Juju/Orthodox: Yazdanism Special juju needs: No Seatbelt use: always Helmet use: No 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 Do you feel safe at home: Yes Do you feel safe in your relationship?: Yes Meds Allergies and Home Medications Allergies Allergy/AdvReac Type Severity Reaction Status Date / Time No Known Allergies Allergy Verified 11/16/23 15:05 Home Medications Medication Instructions Recorded Confirmed Type multivitamin 1 tab PO DAILY 02/16/13 11/16/23 History aspirin 81 mg chewable tablet 81 mg PO DAILY 06/15/14 11/16/23 History (Aspirin Low-Strength) magnesium oxide 400 mg PO DAILY #90 tabs 06/19/22 11/16/23 Rx nitroglycerin 0.4 mg sublingual 0.4 mg sublingual PRN #25 tabs 06/19/22 11/16/23 Rx tablet (Nitrostat) amlodipine 10 mg tablet 10 mg PO DAILY #90 tab-caps 05/27/23 11/16/23 Rx paroxetine HCl 30 mg tablet 30 mg PO DAILY #90 tabs 05/27/23 11/16/23 Rx atorvastatin 80 mg tablet 80 mg PO DAILY #90 tabs 06/30/23 11/16/23 Rx losartan 100 1 tab PO DAILY #90 tabs 06/30/23 11/16/23 Rx mg-hydrochlorothiazide 12.5 mg tablet tamsulosin 0.4 mg capsule 0.8 mg (2 x 0.4 mg) PO QHS #180 08/11/23 11/16/23 Rx caps finasteride 5 mg tablet 5 mg PO DAILY #30 tabs 08/28/23 11/16/23 Rx metoprolol succinate 50 mg 50 mg PO DAILY #90 tabs 08/28/23 11/16/23 Rx tablet,extended release 24 hr Exam Narrative Exam Narrative: Alert and oriented x4 HEENT: Atraumatic normocephalic, pupils equally round reactive to light and accommodation, extraocular motion intact, TMs intact, nares moist and patent without exudate or bleeding, oropharynx noninjected without exudate, Neck: Supple, nontender, without thyromegaly or lymphadenopathy or JVD. Normal carotid pulses Lungs: Clear to auscultation and percussion Heart: Regular rate and rhythm without murmur rub or gallop. Normal apical impulse Abdomen: Nondistended, normal bowel sounds, nontender to palpation no bruits. Extremities: Normal range of motion with normal strength. Normal pulses. Crusting erythematous lesions along the right posterolateral mid thigh that are tender to to light touch. He also appears to have an early outbreak just above the right ankle. These appear to be in the same dermatome L3. He has venous varicosities in both legs right more so than the left. There appears to be trace of edema on the right calf but the calf is nontender to palpation Neurologic: Cranial nerves II through XII grossly within normal limits. Normal strength and sensation over the face trunk and extremities. Results Labs 11/16/23 15:40 11/16/23 15:40 Labs: Laboratory Results - last 24 hr 11/16/23 11/16/23 15:40 18:15 WBC 6.65 RBC 4.23 L Hgb 13.7 Hct 40.1 MCV 95 MCH 32.4 MCHC 34.2 RDW 12.2 Plt Count 203 MPV 9.2 Immature Gran % 0.2 Neutrophils % 49.5 Lymphocytes % 31.7 Monocytes % 14.0 Eosinophils % 4.1 Basophils % 0.5 Nucleated RBC % 0.0 Absolute Neutrophils 3.30 Absolute Lymphocytes 2.11 Absolute Monocytes 0.93 H Absolute Eosinophils 0.27 Absolute Basophils 0.03 ESR 9 D-Dimer 654 H Sodium 141 Potassium 4.1 Chloride 102 Carbon Dioxide 29.6 Anion Gap 9.4 BUN 18 Creatinine 1.1 Est GFR (CKD-EPI 2020) 71.32 Glucose 125 H Calcium 9.0 Magnesium 2.2 Total Bilirubin 0.6 AST 41 H ALT 48 Alkaline Phosphatase 47 Troponin I 85 H* 83 H* C-Reactive Protein < 0.50 NT-Pro-B Natriuret Pep 74 Total Protein 7.8 Albumin 3.9 Last Vital Signs Temp 37.1 C 11/16/23 12:52 Pulse 79 11/16/23 12:52 Resp 16 11/16/23 12:52 BP 165/78 H 11/16/23 12:52 Pulse Ox 98 11/16/23 12:52 PAWSS Have you Been Recently Intoxicated or Drunk Within the Last 30 days?: No Have you Ever Experienced Previous Episodes of Alcohol Withdrawal?: No Have you ever Experienced Withdrawal Seizures?: No Have you ever Experienced Delirium Tremens(DT)s?: No Have you ever undergone Alcohol Rehabilitation Treatment (i.e, inpt ot outpatient treatment programs)?: No Have you ever Experienced Blackouts?: No Have you ever Combined Alcohol with other Downers within the last 90 days?: No Have you ever Combined Alcohol with any other Substance of Abuse during the last 90 days?: No Positive Blood Alcohol level on Presentation? [PCS.BAL]: No Evidence of Increased Autonomic Activity (i.e. HR>120, tremor, sweating, agitation, nausea)?: No Result: 0 Time Spent Time spent with Patient: 55-74 minutes Time was spent: preparing to see the patient(eg.review tests), obtaining and/or reviewing separately otained hiistory, ordering medications,tests, procedures, referring, communicating with other health animal caretaker, indepentently interpreting results, counseling the patient and care coordination
[2023-11-16] MEDS: Enoxaparin 100 MG/ML SYR SC (20:00)
[2023-11-16] MEDS: Normal Saline Flush 10 ML SYR IVP (20:38)
--- NOTE | 2023-11-16 21:45 | RT.EKG_ITS ---
APPROVED REPORT Exam: Resting ECG Reason for Exam: elevated trop Patient Location: I HR:67 bpm ECG Measurements Heart Rate 67 AXIS IA 180 P 54 QRSd 89 QRS 46 QT 421 T 31 QTc 445 Conclusion Sinus rhythm...normal P axis, V-rate 50- 99 Paired ventricular premature complexes...sequence of 2 V complexes RSR' in V1 or V2, probably normal variant...small R' only
[2023-11-16 21:53] LABS: Troponin I 70 ng/L (< or =60)
[2023-11-16] MEDS: Tamsulosin 0.4 MG CAPCR 0.8 MG PO (22:17)
[2023-11-16] MEDS: Gabapentin 300 MG CAP PO (22:38)
[2023-11-16] MEDS: valACYclovir 1,000 MG TAB 1000 MG PO (22:38)
--- NOTE | 2023-11-16 22:41 | W.ED.GENAD ---
HPI General Date/Time Provider Initiated Documentation: 11/16/23 13:50. Limitations to Documentation: no limitations. Information obtained by: patient. HPI Narrative: 73-year-old gentleman with past medical history of CAD presents for evaluation of right leg swelling. Symptoms started 3 days ago. He noted diffuse swelling in his leg. The swelling is associated with some discoloration. The discoloration is kind of tender to touch. His calf is also very tender. He denies any trauma. He reports that 5 days ago he noted a burning rash on the right side of his thigh. He states that the pain is improved but is still burning. He reports that during this time he has had 2 episodes of chest pain and shortness of breath that have occurred doing activities associated with his job. He normally does these activities without any chest pain. He does not currently have any chest pain. 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 He does take a baby aspirin daily. He has never had a blood clot before. Related Data Home Medications Medication Instructions Recorded Confirmed multivitamin 1 tab PO DAILY 02/16/13 11/16/23 aspirin 81 mg chewable tablet 81 mg PO DAILY 06/15/14 11/16/23 (Aspirin Low-Strength) magnesium oxide 400 mg PO DAILY #90 tabs 06/19/22 11/16/23 nitroglycerin 0.4 mg sublingual 0.4 mg sublingual PRN #25 tabs 06/19/22 11/16/23 tablet (Nitrostat) amlodipine 10 mg tablet 10 mg PO DAILY #90 tab-caps 05/27/23 11/16/23 paroxetine HCl 30 mg tablet 30 mg PO DAILY #90 tabs 05/27/23 11/16/23 atorvastatin 80 mg tablet 80 mg PO DAILY #90 tabs 06/30/23 11/16/23 losartan 100 1 tab PO DAILY #90 tabs 06/30/23 11/16/23 mg-hydrochlorothiazide 12.5 mg tablet tamsulosin 0.4 mg capsule 0.8 mg (2 x 0.4 mg) PO QHS #180 08/11/23 11/16/23 caps finasteride 5 mg tablet 5 mg PO DAILY #30 tabs 08/28/23 11/16/23 metoprolol succinate 50 mg 50 mg PO DAILY #90 tabs 08/28/23 11/16/23 tablet,extended release 24 hr Previous Rx's Medication Instructions Recorded magnesium oxide 400 mg PO DAILY #90 tabs 06/19/22 nitroglycerin 0.4 mg sublingual 0.4 mg sublingual PRN #25 tabs 06/19/22 tablet (Nitrostat) amlodipine 10 mg tablet 10 mg PO DAILY #90 tab-caps 05/27/23 paroxetine HCl 30 mg tablet 30 mg PO DAILY #90 tabs 05/27/23 atorvastatin 80 mg tablet 80 mg PO DAILY #90 tabs 06/30/23 losartan 100 1 tab PO DAILY #90 tabs 06/30/23 mg-hydrochlorothiazide 12.5 mg tablet tamsulosin 0.4 mg capsule 0.8 mg (2 x 0.4 mg) PO QHS #180 08/11/23 caps finasteride 5 mg tablet 5 mg PO DAILY #30 tabs 08/28/23 metoprolol succinate 50 mg 50 mg PO DAILY #90 tabs 08/28/23 tablet,extended release 24 hr Allergies Allergy/AdvReac Type Severity Reaction Status Date / Time No Known Allergies Allergy Verified 11/16/23 15:05 General Stated Complaint: RashLesion PHILIPPE: 3 Exam Narrative Exam Narrative: Review of Systems: All systems reviewed & are unremarkable except as noted in HPI and below Well-developed, no acute distress NCAT PERRL, normal conjunctiva RRR, no murmur Unlabored respiratory effort, clear breath sounds bilaterally Nondistended abdomen, nontender Right lower extremity diffusely swollen, varicose veins more prominent on this leg in comparison to the left leg On the right lateral calf in a dermatomal pattern there are vesicular lesions that are on erythematous base and currently scabbed over There are several areas of discoloration around the foot and ankle and proximal lower leg these areas are tender to palpation, there are deep purple in coloration, no crepitus no focal neurologic deficits Appropriate mood and affect Course Vital Signs Vital signs: Vital Signs Temperature 37.1 C 11/16/23 12:52 Pulse 79 11/16/23 12:52 Respiratory Rate 16 11/16/23 12:52 Blood Pressure 165/78 H 11/16/23 12:52 Pulse Oximetry 98 11/16/23 12:52 Temperature 36.6 C 11/16/23 20:01 Temperature Source Temporal Artery Scan 11/16/23 12:52 Pulse 70 11/16/23 20:01 Pulse Rhythm Regular 11/16/23 20:01 Respiratory Rate 20 11/16/23 20:01 Respiratory Effort Normal 11/16/23 20:01 Respiratory Depth Normal 11/16/23 20:01 Respiratory Pattern Normal 11/16/23 20:01 Blood Pressure 177/87 H 11/16/23 20:01 Blood Pressure Mean 117 11/16/23 17:01 Blood Pressure Position Sitting 11/16/23 12:52 Pulse Oximetry 95 11/16/23 20:01 Oxygen Delivery Method Room Air 11/16/23 20:01 Oxygen Flow Rate 0 11/16/23 20:01 Pain Level 0 11/16/23 20:01 Lab/Test Results Lab/Test Results: Laboratory Tests Range/Units 11/16/23 11/16/23 15:40 18:15 WBC (4.4-10.8) 10^3/uL 6.65 RBC (4.36-5.78) 10^6/uL 4.23 L Hgb (13.5-17.5) g/dL 13.7 Hct (40.0-50.0) % 40.1 MCV (80-95) fL 95 MCH (27.0-33.0) pg 32.4 MCHC (32.0-36.0) % 34.2 RDW (11.8-14.1) % 12.2 Plt Count (130-400) 10^3/uL 203 MPV (8.0-11.0) fL 9.2 Immature Gran % 0.2 Neutrophils % 49.5 Lymphocytes % 31.7 Monocytes % 14.0 Eosinophils % 4.1 Basophils % 0.5 Nucleated RBC % (0.0-0.3) % 0.0 Absolute Neutrophils (1.2-6.7) 10^3/uL 3.30 Absolute Lymphocytes (1.2-3.4) 10^3/uL 2.11 Absolute Monocytes (0.1-0.8) 10^3/uL 0.93 H Absolute Eosinophils (0.0-0.7) 10^3/uL 0.27 Absolute Basophils (0.0-0.2) 10^3/uL 0.03 ESR (0-20) mm/hr 9 D-Dimer (<500) ng/mlFEU 654 H Sodium (136-145) mmol/L 141 Potassium (3.5-5.1) mmol/L 4.1 Chloride (98-107) mmol/L 102 Carbon Dioxide (21.0-32.0) mmol/L 29.6 Anion Gap (3-11) mmol/L 9.4 BUN (7-18) mg/dL 18 Creatinine (0.70-1.30) mg/dL 1.1 Est GFR (CKD-EPI 2020) (mL/min/1.73m2) 71.32 Glucose (74-106) mg/dL 125 H Calcium (8.5-10.1) mg/dL 9.0 Magnesium (1.8-2.4) mg/dL 2.2 Total Bilirubin (0.2-1.0) mg/dL 0.6 AST (15-37) U/L 41 H ALT (16-63) U/L 48 Alkaline Phosphatase (46-116) U/L 47 Troponin I (< or =60) ng/L 85 H* 83 H* C-Reactive Protein (<or=0.5) mg/dL < 0.50 NT-Pro-B Natriuret Pep (<300) pg/mL 74 Total Protein (6.4-8.2) g/dL 7.8 Albumin (3.4-5.0) g/dL 3.9 Medical Decision Making Emergent evaluation of right lower extremity swelling. Initial differential includes DVT, trauma, infectious etiology. Patient is noted to have lesions on the right lateral leg that seem consistent with shingles. He is outside the treatment window for this and the lesions appear to be crusting and healing. It seems unlikely that the shingles rash would be causing the diffuse lower extremity swelling and tenderness though it is possible. At this time I am unable to get a DVT study. The patient is not currently having chest pain. His EKG does not demonstrate acute ischemic changes. His right lower extremity is concerning for a DVT. Lab work was obtained. He does not have an elevated white blood cell count. His ESR and CRP are also normal which makes a septic arthritis or a vasculitis less likely. The patient has a good pulse in the right lower leg so I doubt acute arterial occlusion. The patient's troponin level was noted to be elevated at 70. His D-dimer was also elevated. using age-adjusted cut off, he is right at the upper limit, given his complaints of right lower extremity pain and swelling as well as exertional chest pain, I do not feel comfortable ruling out DVT or PE. A CTA was ordered and this was negative for acute pulmonary embolism. Repeat troponin not significantly changed. Repeat EKG also unchanged. Discussed with the hospitalist for admission. Given his high risk and high suspicion for DVT, will treat with full dose Lovenox, admit to the hospital for continued serial troponins and stress testing and a DVT ultrasound tomorrow. Medical Records Medical records reviewed: Yes I reviewed the patient's medical records. Lab Data Lab results reviewed: Yes I reviewed the patient's lab results. ECG Data Interpretation: Sinus bradycardia cardia 61 no STEMI Quality:SDOH Health Related Social Needs: Health related social needs material hardship PFSH All Active Problems (Updated 11/16/23 @ 22:56 by Roni De Anda MD) Chest pain (Acute) Elevated troponin (Acute) Shingles (Acute) Right leg swelling (Acute) Rupture of left proximal biceps tendon (Acute) Left rotator cuff tear (Acute) CAD (coronary artery disease) (Chronic) Blood in urine (Acute) BPH (benign prostatic hyperplasia) (Chronic) Elevated glucose (Acute) Internal hemorrhoid (Acute) Heavy alcohol use (Acute 09/21/13) Varicosities of leg (Acute 09/21/13) Varicosities of leg (Acute 10/22/17) Sciatica, left side (Acute 11/04/17) Non-alcoholic fatty liver disease (Acute 09/21/13) Hyperlipidemia (Acute) Gout, unspecified (Acute 08/20/16) Gastroesophageal reflux disease without esophagitis (Acute 10/22/17) GERD (gastroesophageal reflux disease) (Acute 09/21/13) Essential hypertension (Acute 07/12/13) Diverticulosis (Acute) per colonoscopy 2009 Depressive disorder (Acute) Atherosclerosis of [place] coronary artery (Acute) [place] 2006. Cath with mod diffuse disease stent 2014 Elevated glucose (Acute) Obesity (BMI 30-39.9) (Acute) Concussion (Acute) Primary osteoarthritis of left knee (Acute) Steroid injection: 03/22/2021 Medical History HTN (hypertension) Surgical History Hx of heart artery stent History of back surgery thumb surgery Surgical revision of DJD of both thumbs. Colonoscopy - MAC (~08/31/21) 2009 2020-Stoiber, Normal PRN Extraction of cataract 08/27/17 (OD) 08/11/17 (OS) Family History Mother Myocardial infarction Father Personal history of malignant neoplasm LUNG Brother Myocardial infarction Social History Smoking/Tobacco Use Status: Never Second Hand Exposure: Yes Smoking risk assessment performed?: Yes Alcohol Intake: current Alcohol Intake frequency: a few times a week Alcohol type: beer Drug use: Never Substance use type: does not use Household members: spouse Housing: house Communication Needs: None Do you need help understanding health information?: Rarely Pets and animals: Yes Pets and animals: dog(s) Sexually active: No Do you think of yourself as: straight/heterosexual Current gender identity: male What is your relationship status?: How often do you talk on the phone with friends or family?: twice per week How often do you get together with friends or relatives?: once per week How often do you attend protestant or temple services?: 1-3 times per year Do you belong to any clubs or organized social groups?: no Panel score (0-1 are the most socially isolated patients): 2 What type of physical activity do you participate in: none Frequency: does not exercise Juju/Judaism: Yazidi Special juju needs: No Seatbelt use: always Helmet use: No Drive 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: No Do you feel safe at home: Yes Do you feel safe in your relationship?: Yes PAWSS Have you Been Recently Intoxicated or Drunk Within the Last 30 days?: No Have you Ever Experienced Previous Episodes of Alcohol Withdrawal?: No Have you ever Experienced Withdrawal Seizures?: No Have you ever Experienced Delirium Tremens(DT)s?: No Have you ever undergone Alcohol Rehabilitation Treatment (i.e, inpt ot outpatient treatment programs)?: No Have you ever Experienced Blackouts?: No Have you ever Combined Alcohol with other Downers within the last 90 days?: No Have you ever Combined Alcohol with any other Substance of Abuse during the last 90 days?: No Positive Blood Alcohol level on Presentation? [PCS.BAL]: No Evidence of Increased Autonomic Activity (i.e. HR>120, tremor, sweating, agitation, nausea)?: No Result: 0 Discharge Plan Disposition Patient Disposition: Admit to [facility] Condition: Stable Discharge Details Chief Complaint: RashLesion Clinical Impression: Right leg swelling, Shingles, CAD (coronary artery disease), Elevated troponin, Chest pain Admit Date/Time: 11/16/23 19:11 Admit Provider: Jameson Calvin Attending Provider: Jameson Calvin Primary Care Provider: Karri Dominguez ED Provider: Roni De Anda
[2023-11-17 03:23] VITALS: BP 103/62; PULSE 87; RESP 18; TEMP 36; O2SAT 95
--- NOTE | 2023-11-17 07:00 | DI.NM_ITS ---
APPROVED REPORT Exam: Pharmacologic Patient Location: In-Patient Room/Bed: 214 Stress Nurse: Dariana Venegas RN Ordering Provider:KAREN PULLIAM, Contact Number: BMI: 33.20 Baseline Rhythm: Sinus Rhythm Indications: Chest Pain Medical History Medical History: CAD w/ stents, shingles, depression, post herpetic polyneuropathy, HTN, BPH, ETOH us e, varicosities of leg, non alcholic fatty liver dx, HLD, gout, GERD, obesity Cardiac Medications: Asa, Magnesium Oxide, Nitroglycerin PRN, Amlodipine, Paroxetine HCL, Atorvastati n, Losartan/HCTZ, Metoprolol Succinate Allergies: NKDA Cardiac Risk Factors: +Family history, known coronary artery disease, HTN, HLD, Obesity Previous Cardiac Procedures: Stents Pretest Chest Pain Characteristics: None Exercise History: Indeterminate Physical Disabilities: leg pain/swelling Lung Sounds: LCTA Heart Sounds: Regular, S1/S2 Stress Test Details Test: Pharmacologic stress testing performed using 0.4 mg of regadenoson per 5 mL given IV over 10 s econds. Reason for pharmacologic stress test: physical limitation. Nuclear Acquisition: Rest Tc-99m/Stress Tc-99m 1 day Rest Isotope: Tc-99m Sestamibi. Dose: 10 Date: 11/17/2023 Injection Time: 11:30 am Stress Isotope: Tc-99m Sestamibi. Dose: 31 Date: 11/17/2023 Injection Time: 12:47 pm HR Resting HR Supine: 63 bpm Max Heart Rate (APMHR): 148.199920 bpm Target HR (85% APMHR): 125.266106 bpm Max HR Achieved: 85 bpm % of APMHR: 57.43 Recovery HR: 71 bpm BP Resting BP Supine: 132/74 mmHg Max BP: 132/78 mmHg Recovery BP: 120/78 mmHg ECG Resting ECG: Sinus Rhythm Ectopy: PAC Stress ECG: Sinus Rhythm ST Change: None Arrhythmia: None Recovery ECG: Sinus Rhythm Recovery ST Change: None Recovery Arrhythmia: None Clinical Stress Symptoms: Brief shortness of breath Angina Score: None Rate Pressure Product: [id number] Stress ECG Conclusion 1. Resting electrocardiogram was normal 2. Patient underwent testing using pharmacologic stress with regadenoson 3. Peak heart rate achieved was 57% of maximal predicted for age 4. Electrocardiographic portion of the test was nondiagnostic 5. See MPI report Stress Test Summary STAGE HR BP SpO2 Symptoms NOTES Supine 63 132/74 96% 1 min post Lexiscan injection 74 120/80 brief, mild, shortness of breath 3 min post Lexiscan injection 75 132/78 6 min post Lexiscan injection 71 120/78 96% MPI Conclusion Myocardial perfusion is normal without ischemia or evidence of prior infarction Ejection fraction is 43%. Wall motion is normal Radiologist Interpretation Radiologist Interpretation by: Blaise Morris MD Interpretation Date/Time: 11/17/2023 16:57:24
--- NOTE | 2023-11-17 07:00 | DI.US_ITS ---
Exam(s) US EXTREMITY VENOUS BI EXAM: US EXTREMITY VENOUS BI CLINICAL HISTORY: leg swelling and pain. TECHNIQUE: Bilateral lower extremity venous ultrasound performed using grayscale, color-flow, and sp ectral Doppler analysis. COMPARISON: No exams were available for comparison FINDINGS: The right common femoral, femoral and popliteal veins demonstrate normal compressibility, augmentatio n, and color Doppler. The posterior tibial veins are patent. The saphenofemoral junction is unremark able. There is no evidence of a Rubio's cyst. The soft tissues are unremarkable. The left common femoral, femoral and popliteal veins demonstrate normal compressibility, augmentation , and color Doppler. The posterior tibial veins are patent. The saphenofemoral junction is unremarka ble. There is no evidence of a Rubio's cyst. The soft tissues are unremarkable. IMPRESSION: 1. No evidence of a right lower extremity DVT. 2. No evidence of a left lower extremity DVT. DATA REPOSITORY:
[2023-11-17 07:24] LABS: Cholesterol 187 mg/dL (<200); HDL Cholesterol 35 mg/dL (40-60); Triglyceride 673 mg/dL (<150)
[2023-11-17 07:37] LABS: LDL CHOLESTEROL 81 mg/dL (<100)
[2023-11-17] MEDS: Normal Saline Flush 10 ML SYR IVP ×3 (07:56→16:04)
[2023-11-17] MEDS: Enoxaparin 100 MG/ML SYR SC (07:57)
[2023-11-17] MEDS: valACYclovir 1,000 MG TAB 1000 MG PO ×2 (07:58→15:02)
[2023-11-17] MEDS: hydroCHLOROthiazide 12.5 MG TAB PO (07:58)
[2023-11-17] MEDS: Losartan 50 MG TAB 100 MG PO (07:59)
[2023-11-17] MEDS: Finasteride 5 MG TAB PO (07:59)
[2023-11-17] MEDS: Aspirin 81 MG CHEW PO (07:59)
[2023-11-17] MEDS: Gabapentin 300 MG CAP PO (07:59)
[2023-11-17] MEDS: Magnesium Oxide 400 MG TAB PO (08:00)
[2023-11-17] MEDS: Atorvastatin 40 MG TAB 80 MG PO (08:00)
--- NOTE | 2023-11-17 08:00 | DI.US_ITS ---
APPROVED REPORT EXAM: Comprehensive 2D, Doppler, and color-flow Echocardiogram Patient Location: In-Patient Room/Bed: 214 Manager Land: Tequila Salinas RDCS (AE) Indications: Chest pain, Elevated troponin, CAD, Stent Other Information Study Quality: Adequate Conclusion Normal left ventricular wall thickness and chamber size. Ejection fraction is 55% Right ventricle is not well-visualized Atria are normal in size Mitral annular calcification Estimated right ventricular systolic pressure is 31 mmHg Mildly dilated ascending aorta 3.5 cm Wall motion Left Ventricle The left ventricle is normal size. The left ventricular systolic function is normal. The left ventric ular ejection fraction is within the normal range. There is normal left ventricular wall thickness. T here is normal LV segmental wall motion. There is no ventricular septal defect visualized. LVEF is 55 %. Right Ventricle Right ventricle is not well visualized. Right ventricular systolic function could not be assessed. Atria The left atrium size is normal. The right atrium size is normal. The interatrial septum is intact wit h no evidence for an atrial septal defect. Aortic Valve The aortic valve is normal in structure. Aortic valve is trileaflet. There is no aortic valvular sten osis. No aortic regurgitation is present. Mitral Valve Mild mitral annular calcification. No evidence of mitral valve stenosis. Trace mitral regurgitation. Tricuspid Valve The tricuspid valve is normal in structure. There is no tricuspid valve stenosis. Mild tricuspid regu rgitation. The RVSP is 30.7mmHg. Pulmonic Valve The pulmonary valve is normal in structure. There is no pulmonic valvular stenosis. There is no pulmo carlee valvular regurgitation. Great Vessels The aortic root is normal in size. The ascending aorta is mildly dilated. Aortic arch is not well vis ualized. IVC is normal in size and collapses >50% with inspiration. Pericardium There is no pericardial effusion. 2D Dimensions IVSD d PLAX 1.22 cm M: 0.6-1.2 Ao Root d 3.07 cm M: 3.1 - 3.7 LVPW d PLAX 1.20 cm M: 0.6 - 1.2 Ao Asc Diam d 3.50 cm M: 2.6 - 3.4 LVID d PLAX 4.44 cm M: 4.2 - 5.8 LVDs 3.18 cm M: 2.5 - 4.0 LV EF Teichholz 54.9 % FS 28.34 % LV EDV (Teich) 89.5 mL LV ESV (Teich) 40.4 mL M-Mode TAPSE 2.42 cm (M/F) >1.7 Auto EF LV EDV A4C 157.4 mL LV EDV A2C 149.9 mL LV EDV BP 151.6 mL LV ESV A4C 75.2 mL LV ESV A2C 72.3 mL LV ESV BP 74.0 mL LVEF(%) A4C 52.2 % LVEF(%) A2C 51.7 % LVEF(%) BP 51.2 % LV SV A4C 82.2 ml LV SV A2C 77.5 ml LV SV BP 77.6 ml LV CO A4C 5.5 L/min LV CO A2C 5.2 L/min LV CO BP 5.4 L/min HR A4C 67.17 BPM HR A2C 67.17 BPM LV EDV Index (BP) LA Volume LA Length A4C 6.0 cm LA Length A2C 5.6 cm LA Area A4C s 21.29 cm2 LA Area A2C s 14.63 cm2 LA Vol A4C A-L 63.70 mL LA Vol A2C A-L 32.35 mL LA Vol Biplane A-L 47.1 mL LA Vol/BSA A4C A-L LA Vol/BSA A2C A-L LA Vol/BSA BP A-L 22.7 mL/m2 LA Vol A4C MOD 61.8 mL LA Vol A2C MOD 31.0 mL LA Vol BP MOD 45.3 mL RA Volume RA Area A4C 15.4 cm2 RA ESV A4C (A-L) 33.0mL RA Vol/BSA A4C A-L RA Length A4C 6.1 cm RA ESV A4C (MOD) 32.1mL LV Diastology MV E' medial 0.061 (>0.07 m/s) MV E Vmax 0.60 (0.4-1.3 m/s) MV E/E' MED 9.83 (<14) MV A Vmax 1.00 (0.4-1.3 m/s) MV E' lateral 0.046 (>0.1 m/s) E/A Ratio 0.6 MV E/E' LAT 13.09 (<14) MV E' Average 0.053 m/s MV E/E'(average) 11.23 Aortic Valve AoV Vmax 1.47 m/s LVOT Vmax 1.13 m/s AoV Peak Grad 8.6 mmHg LVOT Peak Grad 5.1 mmHg AoV Area (Vmax) 2.76 cm2 LVOT VTI 0.270 m AoV VTI 0.286 m LVOT Mean Grad 2.6 mmHg AoV Mean Pedro. 1.00 m/s LVOT SV 96.46 mL AoV Mean Grad 4.6 mmHg LVOT Diam s 2.10 cm AoV Area (VTI) 3.37 cm2 Velocity Ratio 0.77 Mitral Valve MV DT 316 (160-240 msec) Pulmonary Valve PV Vmax 1.15 (0.5-1.5 m/s) RVOT Vmax 0.70 m/s PV Peak Grad 5.3 mmHg RVOT Peak Gr. 1.9 mmHg PV Mean Pedro 0.80 m/s RVOT VTI 0.147 m PV Mean Grad 2.7 mmHg RVOT Mean Gr. 1.0 mmHg Tricuspid Valve RA Pressure 3.00 mmHg TR Vmax 2.63 m/s TV S' 0.23 m/s TR Peak Grad 27.7 mmHg RVSP (TR) 30.7 mmHg
[2023-11-17] MEDS: amLODIPine 10 MG TAB PO (08:03)
[2023-11-17] MEDS: Metoprolol CR 50 MG TABCR PO (08:03)
[2023-11-17] MEDS: Multivitamin TAB 1 TAB PO (08:03)
[2023-11-17] MEDS: PARoxetine 10 MG TAB 30 MG PO (09:55)
[2023-11-17 10:20] VITALS: BP 138/75; PULSE 83; RESP 18; TEMP 36.6; O2SAT 93
[2023-11-17] MEDS: Regadenoson 0.4 MG/5 ML SYR IVP (13:04)
[2023-11-17 15:36] VITALS: BP 110/65; PULSE 66; RESP 17; TEMP 36.8; O2SAT 94
--- NOTE | 2023-11-17 15:43 | DSE_ITS ---
Date of service: 11/17/23 Time of Service: 15:43 DS: Diagnosis Discharge Diagnosis (1) Elevated troponin: Status: Acute (2) Chest pain: Status: Acute (3) Shingles: Status: Acute (4) Right leg swelling: Status: Acute (5) CAD (coronary artery disease): Status: Chronic (6) Elevated glucose: Status: Acute (7) Essential hypertension: Status: Acute Discharge Plan Disposition Patient Disposition: Home Condition: Stable Discharge Details Reason For Visit: Chest Pain, Elevated Troponin, Right Leg Swelling Admit Date/Time: 11/16/23 19:11 Admit Provider: Jameson Calvin Attending Provider: Jameson Calvin Primary Care Provider: Karri Dominguez Hospital Course Hospital Course: This is a 73-year-old male patient significant past medical history including but not limited to coronary artery disease status post stent placement hyperlipidemia gout GERD hypertension who presented to the emergency department for complaints of right leg swelling and pain. While in the department he did also report episodes of chest pain several days prior. His workup was concerning for shingles rash but also on labs found to have an elevated troponin at 85. Repeat troponin remained flat due to his cardiac history. patient was admitted on observation status under hospitalist for cardiac rule out and plans for venous duplex of his legs in the morning to rule out DVT in the right leg, which were negative for DVT. His echocardiogram showed normal left ventricular wall thickness and chamber size EF 55% no wall motion abnormalities. His MPI showed normal myocardial perfusion without ischemia and no evidence of prior infarct. for his zoster he was started on valacyclovir 1000 mg TID along with gabapentin 300 mg p.o. twice daily. Also was complaining of right ankle pain and swelling consistent with gout episodes in the past. He will be also started on colchicine and can take NSAIDs for his symptoms. He is symptom-free and stable for discharge. He will follow-up outpatient with his primary care provider for further evaluation he was advised to return to the emergency department sooner for new or worsening symptoms discussed with DR Cantu [place] Meds and New Rx's Prescriptions: New valacyclovir 1 gram Tablet 1,000 mg PO Q8H Qty: 20 0RF gabapentin 300 mg Capsule 300 mg PO BID Qty: 60 0RF colchicine 0.6 mg capsule 0.6 mg PO DAILY Qty: 30 0RF Rx Instructions: 0.6 mg once or twice daily until flare resolves. continue for 48 hours after flare resolves; if symptoms do not improve after 2 to 3 days, consider switching to other anti-inflammatory agents Continued metoprolol succinate 50 mg tablet extended release 24 hr 50 mg PO DAILY Qty: 90 3RF finasteride 5 mg tablet 5 mg PO DAILY Qty: 30 5RF nitroglycerin [Nitrostat] 0.4 mg tablet, sublingual 0.4 mg Sublingual PRN Qty: 25 4RF magnesium oxide 400 mg magnesium tablet 400 mg PO DAILY Qty: 90 3RF multivitamin 1 EACH tablet 1 tab PO DAILY Patient Comments: 08/01/17 taking daily. [facility] 04/21/17-not taking/pps aspirin [Aspirin Low-Strength] 81 MG tablet,chewable 81 mg PO DAILY Patient Comments: 12/23/17 holding. [facility] amlodipine 10 mg tablet 10 mg PO DAILY Qty: 90 3RF paroxetine HCl 30 mg tablet 30 mg PO DAILY Qty: 90 3RF atorvastatin 80 mg tablet 80 mg PO DAILY Qty: 90 3RF losartan-hydrochlorothiazide 100-12.5 mg tablet 1 tab PO DAILY Qty: 90 3RF tamsulosin 0.4 mg capsule 0.8 mg PO QHS Qty: 180 3RF Discharge Instructions Instructions: Shingles (DC), Gout (ED), High Troponin Levels (ED) Additional Instructions: your stress test showed normal myocardial perfusion with no ischemia or evidence of prior infarction. Wall motion is normal. echocardiogram Conclusion Normal left ventricular wall thickness and chamber size. Ejection fraction is 55% Right ventricle is not well-visualized Atria are normal in size Mitral annular calcification Estimated right ventricular systolic pressure is 31 mmHg Mildly dilated ascending aorta 3.5 cm Stand Alone Forms: Nursing Discharge Form Referrals: Karri Dominguez MD [Primary Care Provider] - 11/25/23 3:40 pm Activity:: Activity as Tolerated Equipment/Supplies:: No Equipment Needed Diet:: As Tolerated Discharge Orders Discharge Orders: Discharge Order (Routine); Ordered 11/17/23 Ordered By: Emily Logan Discharge Data Discharge Date/Time-TO BE ENTERED AT DEPARTURE: 11/17/23 16:40 DS: Summary Time Spent with Patient providing and/or coordinating discharge services: Less than 30 minutes Status at Discharge Functional status at discharge: independent ambulation Overall status at discharge: patient is back to baseline Mental Status: mental status grossly normal Speech and Movement: speech and movement normal Mood: congruent mood Affect: normal affect Quality:SDOH Health Related Social Needs: Health related social needs material hardship Exam Const General: cooperative, healthy appearing, comfortable and no acute distress Nutritional Appearance: average body habitus Orientation: alert, awake and oriented x3 HENMT Head: normal to inspection Mouth: oral mucosae normal Chest Chest: normal inspection of the chest Resp Effort & Inspection: normal respiratory effort Cardio Rate: regular rate Rhythm: regular rhythm Skin Lesions: lesion noted (right thigh, vesicular lesions consistent with shingles) Extrem Right lower extremity: ankle Details: tenderness and swelling (erythema) Psych Mental Status: mental status grossly normal Speech and Movement: speech and movement normal Mood: congruent mood Affect: normal affect DS: Data Vitals/I&O Vitals and I&O: Vital Signs Temperature 36.8 C 11/17/23 15:36 Temperature Source Tympanic 11/17/23 15:36 Pulse 66 11/17/23 15:36 Pulse Rhythm Regular 11/17/23 10:20 Respiratory Rate 17 11/17/23 15:36 Respiratory Effort Normal, Non-Labored 11/17/23 10:20 Respiratory Depth Normal 11/17/23 10:20 Respiratory Pattern Normal 11/17/23 10:20 Blood Pressure 110/65 11/17/23 15:36 Blood Pressure Mean 117 11/16/23 17:01 Blood Pressure Position Sitting 11/16/23 12:52 Pulse Oximetry 94 11/17/23 15:36 Oxygen Delivery Method Room Air 11/17/23 15:36 Oxygen Flow Rate 0 11/17/23 15:36 Pain Level 7 11/17/23 15:36 Comment right foot/ankle pain-gabapentin 11/17/23 10:20 Intake & Output 11/16/23 11/17/23 11/17/23 23:59 11:59 23:59 Intake Total 400 / 800 400 / 800 Output Total 300 / 300 600 / 800 200 / 800 Balance -300 / -300 -200 / 0 200 / 0 Weight 96.252 kg Intake: Oral 400 / 800 400 / 800 Output: Urine 300 / 300 600 / 800 200 / 800 Other: Urine Color Yellow Dark Jennifer Light Jennifer Urine Appearance Cloudy Clear Clear Urine Odor Normal None None Voiding Methods Toilet Data Completed and Pending Labs on day of discharge: Labs from last 24 hours 11/17/23 11/16/23 11/16/23 05:58 21:23 18:15 WBC RBC Hgb Hct MCV MCH MCHC RDW Plt Count MPV Immature Gran % Neutrophils % Lymphocytes % Monocytes % Eosinophils % Basophils % Nucleated RBC % Absolute Neutrophils Absolute Lymphocytes Absolute Monocytes Absolute Eosinophils Absolute Basophils ESR D-Dimer Sodium Potassium Chloride Carbon Dioxide Anion Gap BUN Creatinine Est GFR (CKD-EPI 2020) Glucose Calcium Magnesium Total Bilirubin AST ALT Alkaline Phosphatase Troponin I 70 H* 83 H* C-Reactive Protein NT-Pro-B Natriuret Pep Total Protein Albumin Triglycerides 673 H Total Cholesterol 187 LDL Cholesterol Direct 81 LDL Cholesterol, Calc TNP HDL Cholesterol 35 L 11/16/23 15:40 WBC 6.65 RBC 4.23 L Hgb 13.7 Hct 40.1 MCV 95 MCH 32.4 MCHC 34.2 RDW 12.2 Plt Count 203 MPV 9.2 Immature Gran % 0.2 Neutrophils % 49.5 Lymphocytes % 31.7 Monocytes % 14.0 Eosinophils % 4.1 Basophils % 0.5 Nucleated RBC % 0.0 Absolute Neutrophils 3.30 Absolute Lymphocytes 2.11 Absolute Monocytes 0.93 H Absolute Eosinophils 0.27 Absolute Basophils 0.03 ESR 9 D-Dimer 654 H Sodium 141 Potassium 4.1 Chloride 102 Carbon Dioxide 29.6 Anion Gap 9.4 BUN 18 Creatinine 1.1 Est GFR (CKD-EPI 2020) 71.32 Glucose 125 H Calcium 9.0 Magnesium 2.2 Total Bilirubin 0.6 AST 41 H ALT 48 Alkaline Phosphatase 47 Troponin I 85 H* C-Reactive Protein < 0.50 NT-Pro-B Natriuret Pep 74 Total Protein 7.8 Albumin 3.9 Triglycerides Total Cholesterol LDL Cholesterol Direct LDL Cholesterol, Calc HDL Cholesterol PFSH All Active Problems (Updated 11/16/23 @ 23:16 by Jameson Calvin MD) Chest pain (Acute) Elevated troponin (Acute) Shingles (Acute) Right leg swelling (Acute) Rupture of left proximal biceps tendon (Acute) Left rotator cuff tear (Acute) CAD (coronary artery disease) (Chronic) Blood in urine (Acute) BPH (benign prostatic hyperplasia) (Chronic) Elevated glucose (Acute) Internal hemorrhoid (Acute) Heavy alcohol use (Acute 09/21/13) Varicosities of leg (Acute 09/21/13) Varicosities of leg (Acute 10/22/17) Sciatica, left side (Acute 11/04/17) Non-alcoholic fatty liver disease (Acute 09/21/13) Hyperlipidemia (Acute) Gout, unspecified (Acute 08/20/16) Gastroesophageal reflux disease without esophagitis (Acute 10/22/17) GERD (gastroesophageal reflux disease) (Acute 09/21/13) Essential hypertension (Acute 07/12/13) Diverticulosis (Acute) per colonoscopy 2009 Depressive disorder (Acute) Atherosclerosis of [place] coronary artery (Acute) [place] 2006. Cath with mod diffuse disease stent 2013 Elevated glucose (Acute) Obesity (BMI 30-39.9) (Acute) Concussion (Acute) Primary osteoarthritis of left knee (Acute) Steroid injection: 03/22/2021 Medical History HTN (hypertension) Surgical History Hx of heart artery stent History of back surgery thumb surgery Surgical revision of DJD of both thumbs. Colonoscopy - MAC (~08/31/21) 2009 2020-[place], Normal PRN Extraction of cataract 08/27/17 (OD) 08/11/17 (OS) Family History Mother Myocardial infarction Father Personal history of malignant neoplasm LUNG Brother Myocardial infarction Social History Smoking/Tobacco Use Status: Never Second Hand Exposure: Yes Smoking risk assessment performed?: Yes Alcohol Intake: current Alcohol Intake frequency: a few times a week Alcohol type: beer Drug use: Never Substance use type: does not use Household members: spouse Housing: house Communication Needs: None Do you need help understanding health information?: Rarely Pets and animals: Yes Pets and animals: dog(s) Sexually active: No Do you think of yourself as: straight/heterosexual Current gender identity: male What is your relationship status?: How often do you talk on the phone with friends or family?: twice per week How often do you get together with friends or relatives?: once per week How often do you attend sabianist or religion services?: 1-3 times per year Do you belong to any clubs or organized social groups?: no Panel score (0-1 are the most socially isolated patients): 2 What type of physical activity do you participate in: none Frequency: does not exercise Juju/Spiritism: Buddhism Special juju needs: No Seatbelt use: always Helmet use: No Drive intox or ride w/intox cmv driver: No Do you feel safe at home: Yes Do you feel safe in your relationship?: Yes Time Spent with Patient Time Spent with Patient: 45-69 minutes Time was spent: preparing to see the patient(eg.review tests), obtaining and/or reviewing separately otained hiistory, ordering medications,tests, procedures, indepentently interpreting results and counseling the patient
[2023-11-17] MEDS: Ketorolac 30 MG/ML VIAL IVP (16:04)
[2023-11-17] MEDS: Colchicine 0.6 MG TAB 1.2 MG PO (16:06)
== END 2023-11-17 16:40 | disposition home or self-care (01) ==
LOC: ER 14:51 → MS 19:57
PROVIDERS: Admitting Provider Internal Medicine; Emergency Provider Emergency Medicine; PCP Family Medicine; Visit Provider Internal Medicine
DX: I25.118 Atherosclerotic heart disease of native coronary artery with other forms of angina pectoris (principal); I10 Essential (primary) hypertension; Z95.5 Presence of coronary angioplasty implant and graft; B02.23 Postherpetic polyneuropathy; R73.9 Hyperglycemia, unspecified; R07.89 Other chest pain; R60.0 Localized edema; N40.0 Benign prostatic hyperplasia without lower urinary tract symptoms; K75.81 Nonalcoholic steatohepatitis (NASH); K21.9 Gastro-esophageal reflux disease without esophagitis; F32.A Depression, unspecified; E78.5 Hyperlipidemia, unspecified; Z79.899 Other long term (current) drug therapy
CPT/HCPCS: 00123; 36415; 36416; 71275; 78452; 80053; 80061; 82962; 83721; 85652; 93005; 93016; 93018; 93306; 96372; 96374; 96375; 99285; 83735; 83880; 84484; 85025; 85379; 86140; 93010; 93017; 93970; 99223; 99239; G0378; J1650; J1885; J2785; J3490

== ENCOUNTER → 2023-12-26 10:32 | Outpatient (BNVA) | payer OTHER, SELFPAY | PROVIDERS: PCP Family Medicine; Visit Provider Internal Medicine Cardiovascular Disease | DX: I25.118 Atherosclerotic heart disease of native coronary artery with other forms of angina pectoris (principal); I25.10 Atherosclerotic heart disease of native coronary artery without angina pectoris; I10 Essential (primary) hypertension; E78.2 Mixed hyperlipidemia | CPT/HCPCS: 99213 ==

== ENCOUNTER 2024-01-21 08:02 | Outpatient (CLI) | payer OTHER, SELFPAY ==
[2024-01-22 19:41] LABS: Vitamin B12 480 pg/mL (193-986)
== END 2024-01-21 08:03 | disposition home or self-care (01) ==
LOC: LOS 08:02
PROVIDERS: PCP Family Medicine; Referring Provider Family Medicine; Visit Provider Family Medicine
DX: G62.9 Polyneuropathy, unspecified (principal)
CPT/HCPCS: 36415; 82607

== ENCOUNTER 2024-07-12 11:09 | Outpatient (CLI) | payer OTHER, SELFPAY ==
[2024-07-12 09:54] LABS: Triglyceride 141 mg/dL (<150)
== END 2024-07-12 11:10 | disposition home or self-care (01) ==
LOC: LBO 11:09
PROVIDERS: PCP Family Medicine; Visit Provider Family Medicine
DX: E78.1 Pure hyperglyceridemia (principal)
CPT/HCPCS: 36415; 84478

== ENCOUNTER 2024-09-09 02:51 | Outpatient (CLI) | payer OTHER, SELFPAY ==
--- NOTE | 2024-09-09 12:24 | DI.RAD_ITS ---
Exam(s) XR SHOULDER LT COMPLETE 2+V EXAM: XR SHOULDER LT COMPLETE 2+V CLINICAL HISTORY: increased pain, decreased ROM, LT RTC TEAR, M75.102. TECHNIQUE: 2D digital imaging was performed. Three views. COMPARISON: CR XR SHOULDER LT COMPLETE 2+V from 05/28/2023 FINDINGS: BONES: No acute fracture is present. No bony destructive lesion is seen. Spurring at the tip of the acromion. JOINTS: No dislocation present. Degenerative changes noted at the AC joint with inferior spurring. Spurring at the margin of the glenoid. Glenohumeral joint space is maintained. SOFT TISSUE: Normal. IMPRESSION: Stable degenerative changes. DATA REPOSITORY: RADIATION DOSE DELIVERED:
== END 2024-09-09 03:11 ==
LOC: DI 02:51
PROVIDERS: PCP Family Medicine; Visit Provider Nurse Practitioner Family
DX: M19.012 Primary osteoarthritis, left shoulder (principal)
CPT/HCPCS: 73030

== ENCOUNTER 2024-10-13 16:01 | Outpatient (CLI) | payer MEDICARE, SELFPAY ==
--- NOTE | 2024-10-13 13:45 | DI.RAD_ITS ---
Exam(s) XR SHOULDER LT COMPLETE 2+V EXAM: XR SHOULDER LT COMPLETE 2+V CLINICAL HISTORY: fall/pain. TECHNIQUE: 2D digital imaging was performed. Three views. COMPARISON: No exams were available for comparison FINDINGS: BONES: No acute fracture is present. Old deformity of distal clavicle. Chronic appearing adjacent s mall bony fragments. No bony destructive lesion is seen. Mild spurring at the greater tuberosity. JOINTS: No dislocation present. Glenohumeral joint space is maintained. Small mild spurring at the glenoid. SOFT TISSUE: Normal. IMPRESSION: Old distal clavicle deformity. No acute abnormality. DATA REPOSITORY: RADIATION DOSE DELIVERED:
== END 2024-10-13 16:02 | disposition home or self-care (01) ==
LOC: DIORS 16:02
PROVIDERS: PCP Family Medicine; Referring Provider Family Medicine; Visit Provider Student in an Organized Health Care Education/Training Program
DX: M75.102 Unspecified rotator cuff tear or rupture of left shoulder, not specified as traumatic; S46.212A Strain of muscle, fascia and tendon of other parts of biceps, left arm, initial encounter; X58.XXXA Exposure to other specified factors, initial encounter
CPT/HCPCS: 99213; 73030

== ENCOUNTER 2024-10-27 03:02 | Outpatient (CLI) | payer MEDICARE, SELFPAY ==
--- NOTE | 2024-10-27 15:25 | DI.MRI_ITS ---
Exam(s) MR UPPER JOINT LT WO EXAM: MR UPPER JOINT LT WO CLINICAL HISTORY: L SHOULDER PAIN,LT ROTATOR CUFF TEAR,RUPTURE LT PROX BICEPS TENDON,M75.102 TECHNIQUE: Multiplanar multisequence MRI of the shoulder was performed. COMPARISON: MR MR UPPER JOINT LT WO from 05/07/2023 CR XR SHOULDER LT COMPLETE 2+V from 09/09/2024 CR XR SHOULDER LT COMPLETE 2+V from 10/13/2024 FINDINGS: MARROW:There is no evidence of fracture, Hill-Sachs deformity, nor ominous osseous lesions. GLENOHUMERAL JOINT: There are minimal degenerative changes. No prominent chondral defects nor degene rative subarticular cysts in the osseous glenoid. There are no osteophytes evident. Small amount of joint effusion noted. No loose intra-articular bodies evident. ROTATOR CUFF MECHANISM: AC JOINT/ACROMIUM: There are degenerative changes in the AC joint and deformity of the distal clavicl e which is probably related to prior healed fracture. There is no evidence of os acromiale. However, there is a degenerative cyst in the anterior aspect o f the acromium which measures 7 x 6 mm. No prominent surrounding bone edema. There is, however, imp ingement upon the supraspinatus tendon at this level in the sub acromial arch. Supraspinatus: There is a full-thickness tear in the anterior aspect of the supraspinatus tendon. Th ere is also partial-thickness tearing of the mid fibers. The AP measurement of the full-thickness te ar region is approximately 11 mm. There is no retraction of the musculotendinous junction. There is a small amount of fluid in the overlying subacromial bursa. No muscle belly atrophy of the supraspi natus. Infraspinatus: Mild tendinitis signal. No tear. No atrophy. Teres Minor: Intact. No evidence of tear nor muscle atrophy. Subscapularis/anterior cuff: There is some fluid signal within the multipennate insertional fibers of the subscapularis just medial to the lesser tuberosity. Consistent with partial intrasubstance tear ing. There is no full-thickness tear of the anterior cuff-subscapularis. There is a tiny degenerati ve cyst in the lesser tuberosity. BICEPS TENDON: The long head biceps tendon is significantly attenuated within the bicipital groove co nsistent with tear appearance and the intra-articular aspect is not visualized and also presumed torn . There is a small amount of fluid in the biceps tendon sheath LABRUM: There is mild surface irregularity in the superior labrum by no high-grade labral tear nor pa ralabral cyst at this level. The posterior labrum appears intact. There is mild irregularity in the anterosuperior labrum. The mid-lower 2/3 of the anterior labrum appears unremarkable. Inferior lab rum appears intact as does the inferior glenohumeral ligament. IMPRESSION: 1. There is a full-thickness tear of the anterior fibers of the supraspinatus-rotator cuff tendon. A P thickness of the tear is approximately 11 mm. There is small amount of fluid in the overlying suba cromial bursa. There is impingement at the level of the acromium which is somewhat downsloping and e xhibits a 7 x 6 mm intraosseous degenerative cyst. There are degenerative changes in the AC joint. There is no significant atrophy of the supraspinatus muscle belly. 2. Mild tendinitis noted in the infraspinatus. No tear. No atrophy. 3. There is some horizontally orientated fluid signal abnormality within the multi-pennate insertiona l fibers of the anterior cuff-subscapularis consistent with some partial intrasubstance tearing. The re is, however, no full-thickness tear of the anterior cuff nor atrophy of the subscapularis. 4. The long head biceps tendon is torn, appearing significantly attenuated within the intertubercula r groove and nonvisualized within the intra-articular compartment, including at the expected attachme nt site of this structure to the anterosuperior labrum. 5. mild multilevel labral regularities superiorly and anterosuperiorly. No prominent labral tear. A lso no evidence of paralabral cyst. 6. Only minimal degenerative changes within the glenohumeral joint. Minimal amount of increased lina nt fluid. No loose intra-articular bodies. No osteophytes. DATA REPOSITORY:
== END 2024-10-27 03:22 ==
LOC: DI 03:02
PROVIDERS: PCP Family Medicine; Visit Provider Student in an Organized Health Care Education/Training Program
DX: M75.122 Complete rotator cuff tear or rupture of left shoulder, not specified as traumatic
CPT/HCPCS: 73221

== ENCOUNTER → 2024-11-02 08:43 | Outpatient (BNVA) | payer MEDICARE, SELFPAY | PROVIDERS: PCP Family Medicine; Referring Provider Family Medicine; Visit Provider Student in an Organized Health Care Education/Training Program | DX: M75.122 Complete rotator cuff tear or rupture of left shoulder, not specified as traumatic (principal); S46.212A Strain of muscle, fascia and tendon of other parts of biceps, left arm, initial encounter; X58.XXXA Exposure to other specified factors, initial encounter | CPT/HCPCS: 99214 ==

== ENCOUNTER 2024-11-04 08:41 | Day surgery (SDC) | payer MEDICARE, SELFPAY ==
[2024-11-04] VITALS (26 sets, daily range): BP systolic 92–151; BP diastolic 52–92; PULSE 52–61; RESP 13–21; TEMP 36–37.2; O2SAT 91–98; BMI 33.7
--- NOTE | 2024-11-04 07:11 | PDOC.DSDIS_ITS ---
Date of service: 11/04/24 Discharge Plan Disposition Patient Disposition: Home Condition: Stable Discharge Details Attending Provider: Josue Montiel Primary Care Provider: Karri Dominguez Home Meds and New Rx's Prescriptions: New naproxen 250 mg tablet 250 - 500 mg PO BID PRN (Reason: Moderate pain) Qty: 40 0RF oxycodone 5 mg tablet 5 - 10 mg PO Q4H PRN (Reason: Moderate to severe pain) Qty: 18 0RF Continued nitroglycerin [Nitrostat] 0.4 mg tablet, sublingual 0.4 mg Sublingual PRN Qty: 25 4RF metoprolol succinate 50 mg tablet extended release 24 hr 50 mg PO DAILY Qty: 90 3RF paroxetine HCl 30 mg tablet 30 mg PO DAILY Qty: 90 3RF tamsulosin 0.4 mg capsule 0.8 mg PO QHS Qty: 180 3RF losartan-hydrochlorothiazide 100-12.5 mg tablet 1 tab PO DAILY Qty: 90 3RF finasteride 5 mg tablet 5 mg PO DAILY Qty: 30 5RF magnesium oxide 400 mg magnesium tablet 400 mg PO DAILY Qty: 90 3RF multivitamin 1 EACH tablet 1 tab PO DAILY Patient Comments: 08/01/17 taking daily. [facility] 04/21/17-not taking/pps aspirin [Aspirin Low-Strength] 81 MG tablet,chewable 81 mg PO DAILY Patient Comments: 12/23/17 holding. [facility] amlodipine 10 mg tablet 10 mg PO DAILY Qty: 90 3RF atorvastatin 80 mg tablet 80 mg PO DAILY Qty: 90 3RF Discharge Instructions Additional Instructions: Surgery: Left shoulder arthroscopy with rotator cuff repair (subscapularis & supraspinatus), extensive debridement, and subacromial decompression 11/04/24; Hx proximal biceps rupture Activity: For 6 weeks, you should keep your arm at your side in a neutral position at all times except for physical therapy. Do not try to lift or raise your arm using your own muscles. You should use the sling whenever you are out of the house. At home it is best to remove the sling and rest the arm on a pillow at your side or support the operative side with your other hand. You may allow the arm to dangle at your side. A physical therapy prescription will be sent electronically to begin in about 3 weeks. CONSERVATIVE protocol. Prescriptions: Naproxen 250 mg take 1-2 every 12 hours with a meal as needed for moderate pain Oxycodone 5 mg take 1-2 every 4-6 hours as needed for severe pain You may use [id number] Tylenol (acetaminophen) as needed for mild pain. These pain medications may be taken all at once or in different combinations as needed. Also, recommend Colace (docusate) as a stool softener as surgery and pain medicine cause constipation. You may try [id number] diphenhydramine (Benadryl) 25-50 mg nightly as a sleep aid Dressings: Remove shoulder bandage after 3 days. Leave the sticky Steri-Strips in place until they fall off or remove them after you shower. Cover the incisions with Band-Aids or leave them open to air. You may shower after 5 days. Follow-up: 10-[address] Montiel You may take off the leg compression stockings this evening at home. You may also leave them on a few days longer if you have a history of leg swelling or edema. Let us know right away if you develop any redness, drainage, fevers, chest pain, or trouble breathing. Do not drink alcohol or drive for at least 24 hours after anesthesia. Please call the office during business hours with any questions or concerns. Stand Alone Forms: Anesthesia Discharge Inst., Fredrick.Nerve Block Instructions Discharge Orders Discharge Orders: Discharge Order (Routine); Ordered 11/04/24 Ordered By: Jameson Adams DS: Diagnosis Discharge Diagnosis (1) Left rotator cuff tear: Status: Acute
--- NOTE | 2024-11-04 07:33 | ROE_ITS ---
Operative Note Operative Note PRE-OP DIAGNOSIS: Left: 1. Rotator cuff tear 2. Proximal biceps rupture 3. Bursitis 4. Impingement POST-OP DIAGNOSIS: same PROCEDURE: Left: 1. Rotator cuff repair, CPT# 50815. This involved repair of the subscapularis and supraspinatus using anchors and sutures to reattach the rotator cuff back to the footprint of the greater tuberosity. 2. Extensive debridement, CPT# 69189. This involved using arthroscopic hand instruments, power instruments, and radiofrequency instruments to and debride areas of labral tearing, synovitis, and chondromalacia about the humeral head working within the glenohumeral joint anteriorly, superiorly and posteriorly. 4. Subacromial decompression with partial acromioplasty, CPT# 08289. This involved using arthroscopic power instruments and a radiofrequency wand to complete a bursectomy and smooth the undersurface of the acromion. The grants and contracts assistant was medically required in order to help assist in techniques above, which require positioning the arm, holding the arthroscope, and manipulating multiple instruments and sutures at the same time. This cannot be done without the help of an experienced grants and contracts assistant. SURGEON: Josue Montiel PRODUCTION OFFICER: Jameson Adams ANESTHESIA TYPE: Local By Surgeon, General LMA/ETT and Primary Nerve Block Refer to Anesthesia Record ESTIMATED BLOOD LOSS: 10 PATHOLOGY: none sent COMPLICATIONS: None Patient was transported to: PACU Patient's condition: stable Implants: Arthrex: 5.5mm SwiveLocks x 1 Indications: The patient was diagnosed with the above conditions and appropriately indicated for surgical intervention. Please see complete medical record for details. Findings: Exam under anesthesia: Moderately full range of motion, no instability Glenohumeral joint: Mild narrowing, moderate chondromalacia some irregular cartilage surfaces humeral head especially superiorly anteriorly by the rotator cuff tearing. Mild central glenoid chondromalacia. Degenerative labral fraying tearing anteriorly superiorly and posteriorly. Absent intra-articular biceps and not visible at the superior aspect bicipital groove. Partial subscapularis tearing more like split tearing intrasubstance at the upper margin still attached largely to the lesser tuberosity. Subacromial space: Full-thickness retracted complex supraspinatus rotator cuff tear with largely intact infraspinatus. Limited supraspinatus tendon quality and excursion. Significant bursitis, acromiohumeral interval narrowing and diffuse tendinopathy. Procedure Description: In the operating room, general anesthesia was induced. Bilateral shoulders were examined. The patient was positioned in the beachchair position. All bony prominences were well-padded. Preoperative antibiotics were administered. The shoulder was prepped and draped in the usual sterile fashion. The correct patient, procedure, and side of the procedure were all verified prior to incision. Starting through the posterior portal a standard complete diagnostic arthroscopy was performed of the glenohumeral joint including inspection of the long head of the biceps, anterior and superior labrum, subscapularis tendon, supraspinatus and infraspinatus tendons, and axillary recess. The glenoid and humeral head cartilage as well as the posterior labrum were inspected from an anterior viewing portal. Significant findings and interventions noted above. Working through the single anterior cannula the subscapularis split tearing was abraded with a rasp and then the 90 degree lasso used to shuttle 2 simple circumferential suture tapes about the tear spaced out and secured with SMC arthroscopic knots nicely reapproximating and recreating the tendon contour of the subscapularis, which was stable through testing and external rotation. Starting through the posterior portal, the arthroscope was directed into the subacromial space. A lateral 50 yard line lateral portal was created. A combination of power instruments and a radiofrequency ablator were used to debride bursitis anteriorly, posteriorly, and laterally as well as expose and smooth bone spurring on the undersurface of the acromion. The coracoacromial ligament was partially released. The bursectomy was completed viewing laterally and working from posteriorly and the rotator cuff was inspected with complex tearing and challenging exposure due to limited space and extensive bursitis. The supraspinatus tear was full-thickness there was limited tendon available and tendon excursion after debriding the greater tuberosity remnant. The rotator cable could be reapproximated just barely to the medial footprint and some of the more superior delaminated layers could be brought across some of the greater tuberosity especially more posteriorly. The tendon was confirmed to be released from any adhesions. The medial footprint of the supraspinatus was medialized a few millimeters with the mechanical shaver to optimize bone tendon interface for healing. Given the challenging exposure, limited repair ability of this tendon, and modest tear size tissue was made to proceed with a single row construct. An inverted FiberTape horizontal mattress placed in the central posterior aspect of the more quality supraspinatus and 2 separate FiberLink suture tapes were used to circumferentially secure the rotator cable centrally to anteriorly up to the bicipital groove. The infraspinatus was left intact wrapping behind. The greater tuberosity prominence was reduced somewhat to avoid subacromial impingement and the undersized punch was then used just lateral to the drop-off for an oversized anchor given the single anchor construct and advanced patient age. There was actually excellent bone quality and fixation strength. There was good tissue holding reduction especially posteriorly to centrally with less tendon as planned available for coverage anteriorly but the links on the cable were secure covering the bone and footprint from anterior to posterior spanning the repair. The repair was stable through motion and testing. Visualization remained challenging due to bursitis and interference from the deltopectoral fascia. The shoulder was drained of arthroscopic fluid. All portal sites were copiously irrigated. These incisions were closed using 3-0 Monocryl in a buried fashion and then covered with Mastisol, Steri-Strips, Xeroform, dry gauze, and ABDs. The dressings were covered and secured with Medipore tape. The operative extremity was placed into a sling for immobilization. The patient awoke from anesthesia without complication and was transferred to the recovery room in a stable condition. Date of Procedure: 11/04/24
--- NOTE | 2024-11-04 09:47 | ANES.PREOP_ITS ---
General Info Date of Service Date Performed: 11/04/24 Height: 5 ft 7 in Weight: 97.6 kg Body Mass Index (BMI): 33.7 Surgical Procedure: Operation Date: 11/04/24 11:10 Proposed Procedure Side Surgeon p Shoulder Rotator Cuff Arthroscopic w/Extensive Debridement, Subacromial Decompression Left Josue Montiel MD Actual Procedure Side Surgeon p Shoulder Rotator Cuff Arthroscopic w/Extensive Debridement, Subacromial Decompression Left Josue Montiel MD Pre-Op Diagnosis Post-Op Diagnosis (1) Left rotator cuff tear: (2) Rupture of left proximal biceps tendon: (1) Left rotator cuff tear: (2) Rupture of left proximal biceps tendon: Meds Allergies and Home Medications Allergies Allergy/AdvReac Type Severity Reaction Status Date / Time No Known Allergies Allergy Verified 11/04/24 09:27 Home Medication ?Medication ?Instructions ?Recorded multivitamin 1 tab PO DAILY 02/16/13 aspirin 81 mg chewable tablet 81 mg PO DAILY 06/15/14 (Aspirin Low-Strength) magnesium oxide 400 mg PO DAILY #90 tabs 06/19/22 nitroglycerin 0.4 mg sublingual 0.4 mg sublingual PRN #25 tabs 01/21/24 tablet (Nitrostat) amlodipine 10 mg tablet 10 mg PO DAILY #90 tab-caps 06/02/24 atorvastatin 80 mg tablet 80 mg PO DAILY #90 tabs 07/24/24 finasteride 5 mg tablet 5 mg PO DAILY #30 tabs 08/10/24 losartan 100 1 tab PO DAILY #90 tabs 08/10/24 mg-hydrochlorothiazide 12.5 mg tablet metoprolol succinate 50 mg 50 mg PO DAILY #90 tabs 08/10/24 tablet,extended release 24 hr paroxetine HCl 30 mg tablet 30 mg PO DAILY #90 tabs 08/10/24 tamsulosin 0.4 mg capsule 0.8 mg (2 x 0.4 mg) PO QHS #180 08/10/24 caps Current Visit Medications: Current Medications Generic Name Dose Route Start Last Admin Trade Name Freq PRN Reason Stop Dose Admin Ringer's Solution 1,000 mls @ 30 mls/hr 11/04/24 06:00 IV 11/04/24 23:59 INFUSION KM Cefazolin Sodium/Dextrose 2 gm in 50 mls @ 100 mls/hr 11/04/24 06:00 Ancef Duplex IVPB 11/04/24 23:59 PREOP KM Tranexamic Acid/Sodium Chloride 1,000 mg in 100 mls @ 600 mls/hr 11/04/24 06:00 IVPB 11/04/24 23:59 PREOP KM IV Miscellaneous Supplies 1 each 11/04/24 06:00 Iv Access IV 11/04/24 23:59 DIRECTED KM Oxycodone HCl 0 mg 11/04/24 07:11 Oxycodone 5 Mg Tab PO 12/04/24 07:10 Q3H PRN PRN Pain Sodium Chloride 0 ml 11/04/24 06:00 Normal Saline Flush 10 Ml Syr IV 11/04/24 23:59 PRN PRN Sodium Chloride 0 ml 11/04/24 06:00 Normal Saline 10 Ml Vial IJ 11/04/24 23:59 DIRECTED PRN Sterile Water 0 ml 11/04/24 06:00 Water,Injection,Sterile 10 Ml Vial IJ 11/04/24 23:59 DIRECTED PRN PFSH Active Problems Active Problems: Problem Status Onset Code Left shoulder pain Acute M25.512 Erectile disorder Acute N52.9 Peripheral neuropathy Acute G62.9 Prediabetes Acute R73.03 Elevated troponin Acute R79.89 Shingles Acute B02.9 Right leg swelling Acute M79.89 Rupture of left proximal biceps tendon Acute S46.212A Left rotator cuff tear Acute M75.102 CAD (coronary artery disease) Chronic I25.10 Blood in urine Acute R31.9 BPH (benign prostatic hyperplasia) Chronic N40.0 Elevated glucose Acute R73.09 Internal hemorrhoid Acute K64.8 Primary osteoarthritis of left knee Acute M17.12 Concussion Acute S06.0X9A Obesity (BMI 30-39.9) Acute E66.9 Elevated glucose Acute R73.09 Atherosclerosis of [place] coronary artery Acute I25.10 Depressive disorder Acute F32.9 Diverticulosis Acute K57.90 Essential hypertension Acute 07/12/13 I10 GERD (gastroesophageal reflux disease) Acute 09/21/13 K21.9 Gastroesophageal reflux disease without esophagitis Acute 10/22/17 K21.9 Gout, unspecified Acute 08/20/16 M10.9 Hyperlipidemia Acute E78.5 Non-alcoholic fatty liver disease Acute 09/21/13 K76.0 Sciatica, left side Acute 11/04/17 M54.32 Varicosities of leg Acute 10/22/17 I83.90 Varicosities of leg Acute 09/21/13 I83.90 Heavy alcohol use Acute 09/21/13 Z78.9 Medical History Medical History Chest pain HTN (hypertension) Surgical History Surgical History Hx of heart artery stent 2009 History of back surgery thumb surgery Surgical revision of DJD of both thumbs. Colonoscopy - MAC (~08/31/21) 2009 2020-Stoiber, Normal PRN Extraction of cataract 08/27/17 (OD) 08/11/17 (OS) Tobacco Smoking/Tobacco Use Status: Never Passive smoking exposure: Yes Second hand exposure: Yes Alcohol Alcohol Intake: current Alcohol intake frequency: a few times a week Alcohol type: beer Substance Use Substance use: Never Substance use type: does not use Vital Signs and Lab Results Vital Signs Most Recent Vital Signs in EMR: Temp Pulse Resp BP Pulse Ox 36.5 C 60 16 151/92 H 98 11/04/24 09:19 11/04/24 09:19 11/04/24 09:19 11/04/24 09:19 11/04/24 09:19 Lab Results Blood Type / Crossmatch: No Data to Display Complete Blood Count: No Data to Display Complete Metabolic Panel: No Data to Display Liver Function Panel: No Data to Display Coagulation Panel: No Data to Display Cardiac Panel: No Data to Display Arterial Blood Gas: No Data to Display Venous Blood Gas: No Data to Display Pancreas Panel: No Data to Display Thyroid Panel: No Data to Display Infectious Disease: No Data to Display Blood Cultures: No Data to Display Toxicology Panel: No Data to Display Imaging and Studies Imaging and Studies Study information below may be from another EMR and interpreted by another provider. Please see original notes in EMR for more complete details. EKG Summary: Conclusion Sinus rhythm...normal P axis, V-rate 50- 99 Paired ventricular premature complexes...sequence of 2 V complexes RSR' in V1 or V2, probably normal variant...small R' only Stress Test Summary: 10/2023:MPI Conclusion Myocardial perfusion is normal without ischemia or evidence of prior infarction Ejection fraction is 43%. Wall motion is normal Stress ECG Conclusion 1. Patient exercised for 8 minutes (9.5 METS) which is average for his age. 2. The test was stopped as target heart rate was achieved. 3. There were no changes on the ECG during stress that were suggestive of ischemia. 08/25/19 Echocardiogram Summary: Admission Date: 11/16/23 : 1950 Age: 73 APPROVED REPORT EXAM: Comprehensive 2D, Doppler, and color-flow Echocardiogram Patient Location: In-Patient Room/Bed: [facility] [place] Student Loan Counselor: Tequila Salinas RDCS (AE) Indications: Chest pain, Elevated troponin, CAD, Stent Other Information Study Quality: Adequate Conclusion Normal left ventricular wall thickness and chamber size. Ejection fraction is 55% Right ventricle is not well-visualized Atria are normal in size Mitral annular calcification Estimated right ventricular systolic pressure is 31 mmHg Mildly dilated ascending aorta 3.5 cm Cardiac Catheterization Summary: LCX/RCA Disease. Stent to LPL1 lesion, angioplasty to LCX, DESx1 placed. Anesthesia Assessment and Plan Anesthesia History Personal History: No History of Anesthesia Complications Family History: No Family History of Anesthesia Complications Exercise Tolerance Exercise Tolerance: Metabolic Equivalents>4 Pertinent Negatives Pertinent Negatives: No Symptoms of GERD Cardiac & Pulmonary Exam Cardiac Exam: Normal S1/S2 Heart Sounds Pulmonary Exam: Clear Bilateral Breath Sounds Implantable Cardiac Device Does patient have a Pacemaker or an ICD?: No Airway Exam Known Difficult Airway: No Mallampati Class: 2 Mouth Opening: Normal (> 3cm) Thyromental Distance: Greater than 3 cm Neck Range of Motion: Full ROM Neck Circumference: Normal Teeth Condition: Normal Dentition ASA Classification ASA Score: ASA 3 Emergency Case?: No NPO Status NPO Status: NPO Clears >2 hours, Solids >8 hours Anesthesia Plan Resuscitation Status: Full Code Anesthesia Technique: General Anesthesia Airway Planned: Endotracheal Tube Pain Management: Surgeon and patient request nerve block Monitors Used: Standard Monitors
[2024-11-04] MEDS: Lactated Ringers 1,000 ML 30 ML IV (10:07)
[2024-11-04] MEDS: ceFAZolin 2 GM/50 ML BAG IVPB (11:16)
[2024-11-04] MEDS: TRANEXAMIC ACID/SOD. CHL. 1,000 MG/100 ML BAG 600 MG IVPB (11:21)
[2024-11-04] MEDS: Bupivacaine 0.25% Pres-Free W/EPI 30 ML VIAL (11:48)
--- NOTE | 2024-11-04 12:08 | W.ANESNERVE ---
Nerve Block Single Injection Procedure Date and Time Date Performed: 11/04/24 Procedure Start: 10:32 Location Where Procedure Performed Procedure Location: Day Surgery Unit Reason Performed: Postoperative Analgesia Requesting Provider: Josue Montiel Timeout Performed Timeout Performed: Yes Monitoring Used ECG, Blood Pressure, SpO2 and See EMR for corresponding vital signs Sterility Sterility: Hand Hygiene, Surgical Cap, Surgical Mask, Sterile Gloves and Chlorhexidine Sedation Given During Procedure Sedation Given (Indicate Dose Given): Versed IV Dose:: 1mg Patient Mental Status Patient Mental Status: Awake Nerve Block 1st Nerve Block: Laterality: Left Block Type: Supraclavicular Ultrasound Image Saved?: Yes Needle / Catheter Used: 100mm SonoPlex II Local Anesthetic Bolus (Indicate Dose Given): Lidocaine used for local infiltration of skin, Injected in 3-5ml increments after negative blood aspiration, Bupivacaine 0.5% Dose:: 10ml and Exparel Dose:: 10ml Additives (Indicate Dose Given): None Ultrasound: Sterile probe cover and gel used Nerve Stimulator: Supplement to Ultrasound use and No twitch or parasthesia noted < 0.5 mA Paresthesia: None Procedure Tolerated: No Complications and Patient tolerated well Procedure Outcome: Successful Procedure Comment: present, challenging interscalene view, so supra instead. Performed By: Sergio Meza
[2024-11-04] MEDS: EPINEPHrine 10 MG/10 ML ML (12:36)
[2024-11-04] MEDS: HYDROmorphone 1 MG/ML SYR IVP ×2 (13:15→13:44)
--- NOTE | 2024-11-04 13:26 | W.ANESPOSTOP ---
Postoperative Evaluation Date, Time and Location Date Performed: 11/04/24 Time Performed: 13:26 Patient Location: PACU Vital Signs Most Recent Imported Vital Signs: Most Recent Vital Signs Temp Pulse Resp BP Pulse Ox 36.8 C 55 L 13 104/78 93 11/04/24 13:16 11/04/24 13:20 11/04/24 13:20 11/04/24 13:16 11/04/24 13:20 Pain Score Most Recent Pain Score: Most Recent Pain Score Pain Level 4 11/04/24 13:18 Assessment Mental Status: Arousable with meaningful communication Airway and Respiratory Function: Patent airway with normal (patient baseline) respiratory exam Cardiovascular Function: Hemodynamically Stable Hydration Status: Adequately Hydrated Nausea & Vomiting: No Nausea or Vomiting Pain: Pain is tolerable per patient Peripheral Nerve Block: Regional nerve block not resolved at time of post operative discharge
== END 2024-11-04 15:17 | disposition home or self-care (01) ==
LOC: SUR 08:41
PROVIDERS: PCP Family Medicine; Visit Provider Student in an Organized Health Care Education/Training Program
PROC: (CPT 29827; principal; 2024-11-04 11:00)
DX: M75.122 Complete rotator cuff tear or rupture of left shoulder, not specified as traumatic (principal); M75.52 Bursitis of left shoulder; M75.42 Impingement syndrome of left shoulder; S46.122A Laceration of muscle, fascia and tendon of long head of biceps, left arm, initial encounter; X58.XXXA Exposure to other specified factors, initial encounter; G89.18 Other acute postprocedural pain
CPT/HCPCS: 29827; 29823; 29826; 64415; J0665; J0666; J0690; J1100; J1171; J2250; J2371; J2405; J2598; J2704

== ENCOUNTER → 2024-11-16 12:59 | Outpatient (BNVA) | payer MEDICARE, SELFPAY | PROVIDERS: PCP Family Medicine; Visit Provider Student in an Organized Health Care Education/Training Program | DX: Z47.89 Encounter for other orthopedic aftercare (principal); R60.0 Localized edema | CPT/HCPCS: 99024 ==

== ENCOUNTER → 2024-12-27 09:47 | Outpatient (BNVA) | payer MEDICARE, SELFPAY | PROVIDERS: PCP Family Medicine; Referring Provider Family Medicine; Visit Provider Registered Nurse | DX: I25.10 Atherosclerotic heart disease of native coronary artery without angina pectoris (principal) | CPT/HCPCS: 99214 ==

== ENCOUNTER → 2025-01-04 13:55 | Outpatient (BNVA) | payer MEDICARE, SELFPAY | PROVIDERS: PCP Family Medicine; Referring Provider Family Medicine; Visit Provider Student in an Organized Health Care Education/Training Program | DX: Z47.89 Encounter for other orthopedic aftercare (principal) | CPT/HCPCS: 99024 ==

== ENCOUNTER → 2025-01-20 13:18 | Outpatient (BNVA) | payer MEDICARE, SELFPAY | PROVIDERS: PCP Family Medicine; Referring Provider Family Medicine | DX: M75.101 Unspecified rotator cuff tear or rupture of right shoulder, not specified as traumatic (principal); W19.XXXA Unspecified fall, initial encounter | CPT/HCPCS: 99213 ==

== ENCOUNTER 2025-01-25 10:25 | Outpatient (CLI) | payer MEDICARE, SELFPAY ==
--- NOTE | 2025-01-25 09:49 | DI.RAD_ITS ---
Exam(s) XR SHOULDER RT COMPLETE 2+V EXAM: XR SHOULDER RT COMPLETE 2+V CLINICAL HISTORY: RIGHT SHOULDER PAIN. TECHNIQUE: 2D digital imaging was performed of the right shoulder. Two images were obtained. Grash ey and axillary views were obtained. COMPARISON: There are no priors for comparison. FINDINGS: BONES: No acute fracture is present. No bony destructive lesion is seen. JOINTS: No dislocation present. Mild degenerative changes are seen at the glenohumeral and acromiocla vicular joint. There is mild spurring seen at the lateral aspect of the acromion. Tiny soft tissue calcifications are adjacent to the acromion. Subchondral cysts are seen in the greater tuberosity. SOFT TISSUE: Normal. IMPRESSION: Mild degenerative changes seen in the right shoulder. DATA REPOSITORY: RADIATION DOSE DELIVERED:
== END 2025-01-25 10:26 | disposition home or self-care (01) ==
LOC: DIORS 10:26
PROVIDERS: PCP Family Medicine; Visit Provider Physician Assistant
DX: M75.101 Unspecified rotator cuff tear or rupture of right shoulder, not specified as traumatic (principal)
CPT/HCPCS: 73030

== ENCOUNTER 2025-02-02 00:51 | Outpatient (CLI) | payer MEDICARE, SELFPAY ==
--- NOTE | 2025-02-02 06:45 | DI.MRI_ITS ---
Exam(s) MR UPPER JOINT RT WO EXAM: MR UPPER JOINT RT WO CLINICAL HISTORY: PAIN,rt rotator cuff tear,m75.101. TECHNIQUE: Multiplanar multisequence MRI was performed. COMPARISON: Plain films 05 January 2025 FINDINGS: The exam is somewhat limited by motion. BONES: There is no fracture or contusion pattern. Degenerative cysts in the humeral head. JOINTS:The acromioclavicular joint is shows hypertrophic changes with a inferior spurring as well as fluid. There is spurring at the undersurface of the acromion and adjacent calcifications. The glenohumeral joint is normal. TENDONS: Infraspinatus: Abnormal thickening and edema. Severe distal tear without definite retraction. Supraspinatus: The posterior to mid supraspinatus tendon also appears thickened and shows abnormal si gnal. The anterior aspect of the tendon appears intact. Subscapularis: Unremarkable. Teres Minor: Unremarkable. Biceps and [place]: Unremarkable. MUSCLES: There is edema in the infraspinatus muscle. GLENOID LABRUM: Unremarkable on this noncontrast examination. SOFT TISSUES: Unremarkable. BURSAE: Subacromial and subdeltoid bursae show a small amount of fluid. There is small amount of fl uid in the subcoracoid bursa.. IMPRESSION: Severe tear of the infraspinatus tendon and posterior to mid supraspinatus tendon. DATA REPOSITORY:
== END 2025-02-02 01:11 ==
LOC: DI 00:52
PROVIDERS: PCP Family Medicine; Visit Provider Student in an Organized Health Care Education/Training Program
DX: M75.121 Complete rotator cuff tear or rupture of right shoulder, not specified as traumatic (principal)
CPT/HCPCS: 73221

== ENCOUNTER → 2025-02-09 10:16 | Outpatient (BNVA) | payer MEDICARE, SELFPAY | PROVIDERS: PCP Family Medicine; Referring Provider Family Medicine; Visit Provider Student in an Organized Health Care Education/Training Program | DX: M75.102 Unspecified rotator cuff tear or rupture of left shoulder, not specified as traumatic (principal); M75.101 Unspecified rotator cuff tear or rupture of right shoulder, not specified as traumatic; S46.212D Strain of muscle, fascia and tendon of other parts of biceps, left arm, subsequent encounter; X58.XXXD Exposure to other specified factors, subsequent encounter | CPT/HCPCS: 20610; J1010 ==

== ENCOUNTER 2025-06-25 13:55 | Outpatient (CLI) | payer MEDICARE, SELFPAY ==
--- NOTE | 2025-06-25 13:45 | DI.RAD_ITS ---
Exam(s) XR KNEE LT 4V AP,LAT,BONNIE,PAT EXAM: XR KNEE LT 4V AP,LAT,BONNIE,PAT CLINICAL HISTORY: eval pathology. TECHNIQUE: 2D digital imaging was performed. Three views. COMPARISON: CR XR KNEE LT 3V AP,LAT,BONNIE from 01/19/2021 FINDINGS: BONES: No acute fracture is present. No bony destructive lesion is seen. JOINTS: There is moderate narrowing of the medial femoral tibial joint space which is increased from the previous exam. There is mild periarticular spurring. There is compensatory widening of the lateral femoral tibial joint space. The patellofemoral joint space is maintained in shows mild periarticular spurring. No joint effusion is seen. SOFT TISSUE: Rounded calcification adjacent to the medial femoral condyle. Mild vascular calcifications. IMPRESSION: Moderate degenerative changes of the medial femoral tibial joint. Calcification is soft tissues medial to the medial femoral condyle. The preliminary [facility] report was reviewed. DATA REPOSITORY: RADIATION DOSE DELIVERED:
--- NOTE | 2025-06-25 15:37 | DI.[facility]_ITS ---
PROCEDURE INFORMATION: Exam: XR Left Knee Exam date and time: 06/25/2025 2:12 PM Age: 75 years old Clinical indication: Pain; Knee; Left TECHNIQUE: Imaging protocol: Radiologic exam of the left knee. Views: 4 or more views. COMPARISON: CR XR KNEE LT 3V AP,LAT,BONNIE 01/19/2021 11:24 AM FINDINGS: Bones/joints: See Soft tissues finding. Soft tissues: There is a dystrophic calcification in the medial tissues adjacent to the medial femoral condyle, new since previous exam. There is loss of joint space medially compared to prior study. Marginal osteophyte formation noted. No joint effusion. IMPRESSION: Interval development of degenerative changes with dystrophic calcification medial tissues. Dictated and Authenticated by: Sofy Mckeon MD. Orderin Rehan Sawyer MD
== END 2025-06-25 14:15 ==
PROVIDERS: PCP Family Medicine; Visit Provider Nurse Practitioner Family
DX: M25.562 Pain in left knee (principal)
CPT/HCPCS: 73564

== ENCOUNTER 2025-06-25 14:54 | Outpatient (REF) | payer MEDICARE, SELFPAY ==
[2025-06-25 16:49] LABS: Uric Acid 6.4 mg/dL (3.5-7.2)
== END 2025-06-25 14:55 | disposition home or self-care (01) ==
LOC: LBN 14:54
PROVIDERS: PCP Family Medicine; Visit Provider Nurse Practitioner Family
DX: M25.562 Pain in left knee (principal); M17.12 Unilateral primary osteoarthritis, left knee
CPT/HCPCS: 84550

== ENCOUNTER 2025-06-27 14:41 | Emergency (ER) | payer MEDICARE, SELFPAY ==
[2025-06-27 14:42] VITALS: BP 150/84; PULSE 62; RESP 18; TEMP 37.1; O2SAT 94
--- NOTE | 2025-06-27 15:06 | W.ED.GENAD ---
Discharge Plan Disposition Patient Disposition: Home Condition: Stable Discharge Details Clinical Impression: Acute pain of left knee Primary Care Provider: Karri Dominguez ED Provider: Jeremiah Barrett [place] Meds and New Rx's Prescriptions: Continued nitroglycerin [Nitrostat] 0.4 mg tablet, sublingual 0.4 mg Sublingual PRN Qty: 25 4RF metoprolol succinate 50 mg tablet extended release 24 hr 50 mg PO DAILY Qty: 90 3RF paroxetine HCl 30 mg tablet 30 mg PO DAILY Qty: 90 3RF tamsulosin 0.4 mg capsule 0.8 mg PO QHS Qty: 180 3RF losartan-hydrochlorothiazide 100-12.5 mg tablet 1 tab PO DAILY Qty: 90 3RF finasteride 5 mg tablet 5 mg PO DAILY Qty: 30 5RF multivitamin 1 EACH tablet 1 tab PO DAILY Patient Comments: 08/01/17 taking daily. [facility] 04/21/17-not taking/pps aspirin [Aspirin Low-Strength] 81 MG tablet,chewable 81 mg PO DAILY Patient Comments: 12/23/17 holding. [facility] amlodipine 10 mg tablet 10 mg PO DAILY Qty: 90 3RF atorvastatin 80 mg tablet 80 mg PO DAILY Qty: 90 3RF No Action meloxicam 7.5 mg tablet 7.5 mg PO BID PRN (Reason: right shoulder pain) Qty: 60 0RF magnesium oxide 400 mg magnesium tablet 400 mg PO DAILY Qty: 90 3RF sildenafil (pulm.hypertension) 20 mg tablet 20 - 100 mg PO DAILY PRN (Reason: sexual activity) Qty: 30 5RF Discharge Instructions Additional Instructions: Your blood work and x-ray did not show any concerning findings at this time. Dr. Haines did a steroid injection. Follow-up with his office. If you feel more ill or have new symptoms such as high fevers return to the emergency department for reevaluation. HPI General Mode of arrival: ambulatory. Date/Time Provider Initiated Documentation: 06/27/25 14:47. Limitations to Documentation: no limitations. Information obtained by: patient. History of Present Illness 75 year old M presents to the emergency department with the chief complaint of left knee pain, described as moderate, Quality is described as aching, and is localized to the left and lower extremity. Patient reports no radiation. Patient started experiencing this day(s) (4) and it has been constant. Rest improves symptom(s), Movement worsens symptoms . Patient notes no other symptoms.. Patient did receive the following treatments prior to arrival, none Related Data Home Medications ?Medication ?Instructions ?Recorded ?Confirmed multivitamin 1 tab PO DAILY 02/16/13 06/27/25 aspirin 81 mg chewable tablet 81 mg PO DAILY 06/15/14 06/27/25 (Aspirin Low-Strength) magnesium oxide 400 mg PO DAILY #90 tabs 06/19/22 06/27/25 nitroglycerin 0.4 mg sublingual 0.4 mg sublingual PRN #25 tabs 01/21/24 06/27/25 tablet (Nitrostat) amlodipine 10 mg tablet 10 mg PO DAILY #90 tab-caps 06/02/24 06/27/25 atorvastatin 80 mg tablet 80 mg PO DAILY #90 tabs 07/24/24 06/27/25 finasteride 5 mg tablet 5 mg PO DAILY #30 tabs 08/10/24 06/27/25 losartan 100 1 tab PO DAILY #90 tabs 08/10/24 06/27/25 mg-hydrochlorothiazide 12.5 mg tablet metoprolol succinate 50 mg 50 mg PO DAILY #90 tabs 08/10/24 06/27/25 tablet,extended release 24 hr paroxetine HCl 30 mg tablet 30 mg PO DAILY #90 tabs 08/10/24 06/27/25 tamsulosin 0.4 mg capsule 0.8 mg (2 x 0.4 mg) PO QHS #180 08/10/24 06/27/25 caps sildenafil (pulm.hypertension) 20 20 - 100 mg (1 - 5 x 20 mg) PO 12/28/24 06/27/25 mg tablet DAILY PRN sexual activity #30 tabs meloxicam 7.5 mg tablet 7.5 mg PO BID PRN right shoulder 01/27/25 06/27/25 pain #60 tabs Previous Rx's ?Medication ?Instructions ?Recorded magnesium oxide 400 mg PO DAILY #90 tabs 06/19/22 nitroglycerin 0.4 mg sublingual 0.4 mg sublingual PRN #25 tabs 01/21/24 tablet (Nitrostat) amlodipine 10 mg tablet 10 mg PO DAILY #90 tab-caps 06/02/24 atorvastatin 80 mg tablet 80 mg PO DAILY #90 tabs 07/24/24 finasteride 5 mg tablet 5 mg PO DAILY #30 tabs 08/10/24 losartan 100 1 tab PO DAILY #90 tabs 08/10/24 mg-hydrochlorothiazide 12.5 mg tablet metoprolol succinate 50 mg 50 mg PO DAILY #90 tabs 08/10/24 tablet,extended release 24 hr paroxetine HCl 30 mg tablet 30 mg PO DAILY #90 tabs 08/10/24 tamsulosin 0.4 mg capsule 0.8 mg (2 x 0.4 mg) PO QHS #180 08/10/24 caps sildenafil (pulm.hypertension) 20 20 - 100 mg (1 - 5 x 20 mg) PO 12/28/24 mg tablet DAILY PRN sexual activity #30 tabs meloxicam 7.5 mg tablet 7.5 mg PO BID PRN right shoulder 01/27/25 pain #60 tabs Allergies Allergy/AdvReac Type Severity Reaction Status Date / Time No Known Allergies Allergy Verified 06/27/25 14:53 General Stated Complaint: Recheck PHILIPPE: 4 Review of Systems All systems reviewed & are unremarkable except as noted in HPI and below Constitutional Constitutional: Denies chills, Denies fever(s) and Denies weakness Cardiovascular Cardiovascular: Denies chest pain and Denies dyspnea Respiratory Respiratory: Denies dyspnea Gastrointestinal Gastrointestinal: Denies abdominal pain and Denies vomiting Musculoskeletal Musculoskeletal: Reports arthralgias Neurologic Neurologic: Denies weakness Exam Const General: no acute distress Orientation: alert [facility] Head: normal to inspection Ears: external ears normal General nose exam: external nose normal Mouth: moist mucous membranes Eyes General: appearance normal, both eyes and all related structures Neck Neck: normal visual inspection Resp Effort & Inspection: normal respiratory effort and able to speak in complete sentences Cardio Rate: regular rate Skin General skin exam: no rashes or lesions noted Neuro General: patient alert and patient oriented x3 Extrem General: full ROM and no clubbing, cyanosis or edema Psych Mental Status: mental status grossly normal Course Vital Signs Vital signs: Vital Signs Temperature 37.1 C 06/27/25 14:42 Pulse 62 06/27/25 14:42 Respiratory Rate 18 06/27/25 14:42 Blood Pressure 150/84 H 06/27/25 14:42 Pulse Oximetry 94 06/27/25 14:42 Temperature 37.1 C 06/27/25 14:42 Temperature Source Oral 06/27/25 14:42 Pulse 62 06/27/25 14:42 Respiratory Rate 18 06/27/25 14:42 Blood Pressure 150/84 H 06/27/25 14:42 Blood Pressure Position Sitting 06/27/25 14:42 Pulse Oximetry 94 06/27/25 14:42 Oxygen Delivery Method Room Air 06/27/25 14:42 Oxygen Flow Rate 0 06/27/25 14:42 Pain Level 10 06/27/25 14:42 Medical Decision Making 75-year-old male who states he has a history of gout that has affected his left knee and foot in the past comes in with 3 to 4 days of worsening left knee pain with no known injury. He was seen in [place] [facility] 2 days ago and had an x-ray which showed arthritic changes but otherwise no acute findings. He says the pain is not getting any better so came here for reevaluation. He denies any fevers or chills. No redness of the leg. Denies any calf pain. The left knee is mildly swollen compared to the right but is not erythematous or warm compared to the right. He has intact distal sensation and pulses in the foot. No calf tenderness. He is able to fully range the knee. I suspect gout versus arthritis and less likely entities such as septic joint. Will check CBC, CMP and inflammatory markers and a repeat uric acid though this can still be low in the setting of an acute gout flare. Also repeat x-rays and give a dose of prednisone and reassess. Blood work unremarkable and x-ray shows no significant findings. Dr. Haines saw the patient and injected steroid which he tolerated well. He will follow-up with orthopedics, Dr. Haines does not feel this is gout so we will hold off on continued prednisone. Return precautions given Differential Diagnosis Differential Diagnosis: gout, arthritis Medical Records Medical records reviewed: Yes I reviewed the patient's medical records. Lab Data Lab results reviewed: Yes I reviewed the patient's lab results. PFSH All Active Problems Acute pain of left knee (Acute) Right rotator cuff tear (Acute) Erectile dysfunction (Acute) Left shoulder pain (Acute) Erectile disorder (Acute) Peripheral neuropathy (Acute) Prediabetes (Acute) Elevated troponin (Acute) Shingles (Acute) Right leg swelling (Acute) Rupture of left proximal biceps tendon (Acute) Left rotator cuff tear (Acute) s/p Left shoulder arthroscopy with rotator cuff repair (subscapularis & supraspinatus), extensive debridement, and subacromial decompression 11/04/24; Hx proximal biceps rupture CAD (coronary artery disease) (Chronic) Blood in urine (Acute) BPH (benign prostatic hyperplasia) (Chronic) Elevated glucose (Acute) Internal hemorrhoid (Acute) Primary osteoarthritis of left knee (Acute) Steroid injection: 03/22/2021 Concussion (Acute) Obesity (BMI 30-39.9) (Acute) Elevated glucose (Acute) Atherosclerosis of [place] coronary artery (Acute) [place] 2006. 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 Colonoscopy - MAC (~08/31/21) 2009 2020-Stoiber, Normal PRN Extraction of cataract 08/27/17 (OD) 08/11/17 (OS) Family History Mother Myocardial infarction Father Personal history of malignant neoplasm LUNG Brother Myocardial infarction Social History Smoking/Tobacco Use Status: Never Second Hand Exposure: Yes Smoking risk assessment performed?: Yes Alcohol Intake: current Alcohol Intake frequency: 3 or more drinks per day Alcohol type: beer Drug use: Never Substance use type: does not use Household members: none Housing: house Communication Needs: None Do you need help understanding health information?: Rarely Pets and animals: Yes Pets and animals: dog(s) Sexually active: No Do you think of yourself as: straight/heterosexual Current gender identity: male What is your relationship status?: How often do you talk on the phone with friends or family?: twice per week How often do you get together with friends or relatives?: once per week How often do you attend yazdanism or jewish services?: 1-3 times per year Do you belong to any clubs or organized social groups?: no Panel score (0-1 are the most socially isolated patients): 2 What type of physical activity do you participate in: none Frequency: does not exercise Juju/Tenriism: Anabaptist Special juju needs: No Seatbelt use: sometimes Helmet use: No Drive intox or ride w/intox ambulance driver paramedic: No Additional Social history: KATHRINE [employer]ES Have you Been Recently Intoxicated or Drunk Within the Last 30 days?: No Have you Ever Experienced Previous Episodes of Alcohol Withdrawal?: No Have you ever Experienced Withdrawal Seizures?: No Have you ever Experienced Delirium Tremens(DT)s?: No Have you ever undergone Alcohol Rehabilitation Treatment (i.e, inpt ot outpatient treatment programs)?: No Have you ever Experienced Blackouts?: No Have you ever Combined Alcohol with other Downers within the last 90 days?: No Have you ever Combined Alcohol with any other Substance of Abuse during the last 90 days?: No Positive Blood Alcohol level on Presentation? [PCS.BAL]: No Evidence of Increased Autonomic Activity (i.e. HR>120, tremor, sweating, agitation, nausea)?: No Result: 0
[2025-06-27] MEDS: predniSONE 20 MG TAB 60 MG PO (15:12)
[2025-06-27 15:30] LABS: Abs Immature Grans 0.03 10^3/uL (0.0-0.06); HCT 38.7 % (40.0-50.0); HGB 13.6 g/dL (13.5-17.5); Immature Grans % 0.4 %; MCH 32.9 pg (27.0-33.0); MCHC 35.1 % (32.0-36.0); MCV 94 fL (80-95); MPV 8.9 fL (8.0-11.0); Platelet Count 210 10^3/uL (130-400); RBC 4.13 10^6/uL (4.36-5.78); RDW 11.9 % (11.8-14.1); RDW-SD 40.4 fL; WBC 7.38 10^3/uL (4.4-10.8)
[2025-06-27 15:38] LABS: ESR 10 mm/hr (0-20)
[2025-06-27 15:55] LABS: Uric Acid 6.6 mg/dL (3.5-7.2)
[2025-06-27 15:56] LABS: ALT 39 U/L (16-63); AST 29 U/L (15-37); Albumin 4.0 g/dL (3.4-5.0); Alkaline Phosphatase 44 U/L (46-116); Anion Gap 10.3 mmol/L (3-11); BUN 14 mg/dL (7-18); Bilirubin, Total 0.5 mg/dL (0.2-1.0); CO2 27.7 mmol/L (21.0-32.0); Calcium 9.1 mg/dL (8.5-10.1); Chloride 101 mmol/L (98-107); Estimated GFR 78.98 (mL/min/1.73m2); Glucose 94 mg/dL (74-106); Magnesium 2.1 mg/dL (1.8-2.4); Potassium 4.1 mmol/L (3.5-5.1); Sodium 139 mmol/L (136-145); Total Protein 7.8 g/dL (6.4-8.2)
[2025-06-27 15:57] LABS: C-Reactive Protein < 0.50 mg/dL (<or=0.5)
--- NOTE | 2025-06-27 16:00 | DI.RAD_ITS ---
Exam(s) XR KNEE LT 3V AP,LAT,BONNIE EXAM: XR KNEE LT 3V AP,LAT,BONNIE CLINICAL HISTORY: increasing left knee swelling/pain. TECHNIQUE: 2D digital imaging was performed. Three views. COMPARISON: CR,XR XR KNEE LT 4V AP,LAT,BONNIE,PAT from 06/25/2025 FINDINGS: BONES: No acute fracture is present. No bony destructive lesion is seen. JOINTS: There is moderate narrowing of the medial femoral tibial joint. No joint effusion is seen. SOFT TISSUE: Calcification again noted adjacent to the medial femoral condyle. IMPRESSION: Degenerative changes. No acute abnormality. DATA REPOSITORY: RADIATION DOSE DELIVERED:
[2025-06-27] MEDS: Bupivacaine 0.5% Pres-Free 30 ML VIAL (16:57)
[2025-06-27] MEDS: methylPREDNISolone ACETATE 80 MG/ML VIAL IJ (16:57)
[2025-06-27 17:10] VITALS: PULSE 80; RESP 18; O2SAT 97
--- NOTE | 2025-06-27 20:09 | OCONE_ITS ---
Date of service: 06/27/25 Time of Service: 16:00 History of Present Illness History of Present Illness Chief Complaint: Left Knee Pain Narrative: Ed presents to the ED today for debilitating pain of the left knee. [facility] presented to [facility] complaint on 06/25. At that time, he had 3 days of excruciating pain of the left knee. There was no reported trauma, but he does have a history of gout. The pain is on the medial side of the knee. He has had pain with any motion of the knee but also with all weight bearing. He has been able to bear weight but does so with pain. He has been taking Ibuprofen and Tylenol with minimal relief. Pain is medial. No significant pain laterally. Some milder pain and fullness posteriorly. No radicular symptoms. No numbness or tinglign. Consults Consult date: 06/27/25 Requesting physician: Jeremiah Barrett Consult Reason Left Knee Pain Assessment and Plan Assessment and plan (1) Acute pain of left knee: Status: Acute Assessment and plan: Ed is a 75 year old male with severe, acute pain about the left knee. While gout would be likely this does not appear to be that. Inflammatory markers are negative and there is a limited effusion. The dystrophic calcifications seen medially are not likely new as these take some time to form. Acute osteoarthritis or a new meniscal tear are possible but the pain seems to be out of proportion to this. Subchondral fracture or insufficiency fracture could also cause significant slightly localized pain but he also hurts in the soft tissues while not activating muscles and not weight bearing. I am not certain as to the exact etiology but labs are okay and without trauma, I don't think anything needs to be done specifically. To hopefully help the pain, I offered an injection. He tolerated this well and noted some improvement within a few minutes. We will call in a few days to check on his progress and we have an appointment set up for next week. If pain persists with limited weightbearing then MRI would be the next step. Review of Systems All systems reviewed & are unremarkable except as noted in HPI and below PFSH All Active Problems Acute pain of left knee (Acute) Right rotator cuff tear (Acute) Erectile dysfunction (Acute) Left shoulder pain (Acute) Erectile disorder (Acute) Peripheral neuropathy (Acute) Prediabetes (Acute) Elevated troponin (Acute) Shingles (Acute) Right leg swelling (Acute) Rupture of left proximal biceps tendon (Acute) Left rotator cuff tear (Acute) s/p Left shoulder arthroscopy with rotator cuff repair (subscapularis & supraspinatus), extensive debridement, and subacromial decompression 11/04/24; Hx proximal biceps rupture CAD (coronary artery disease) (Chronic) Blood in urine (Acute) BPH (benign prostatic hyperplasia) (Chronic) Elevated glucose (Acute) Internal hemorrhoid (Acute) Primary osteoarthritis of left knee (Acute) Steroid injection: 03/22/2021 Concussion (Acute) Obesity (BMI 30-39.9) (Acute) Elevated glucose (Acute) Atherosclerosis of hoopa coronary artery (Acute) [place] 2006. 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 Colonoscopy - MAC (~08/31/21) 2009 2020-Stoiber, Normal PRN Extraction of cataract 08/27/17 (OD) 08/11/17 (OS) Family History Mother Myocardial infarction Father Personal history of malignant neoplasm LUNG Brother Myocardial infarction Social History Smoking/Tobacco Use Status: Never Second Hand Exposure: Yes Smoking risk assessment performed?: Yes Alcohol Intake: current Alcohol Intake frequency: 3 or more drinks per day Alcohol type: beer Drug use: Never Substance use type: does not use Household members: none Housing: house Communication Needs: None Do you need help understanding health information?: Rarely Pets and animals: Yes Pets and animals: dog(s) Sexually active: No Do you think of yourself as: straight/heterosexual Current gender identity: male What is your relationship status?: How often do you talk on the phone with friends or family?: twice per week How often do you get together with friends or relatives?: once per week How often do you attend mormonism or jehovah's witness services?: 1-3 times per year Do you belong to any clubs or organized social groups?: no Panel score (0-1 are the most socially isolated patients): 2 What type of physical activity do you participate in: none Frequency: does not exercise Juju/Presybeterian: Congregational Special juju needs: No Seatbelt use: sometimes Helmet use: No Drive 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 AAOx3. Grimacing with movement of the left knee. Knee has a mild effusion. There is fullness posteriorly, consistent with a popliteal cyst. There is some pain posteriorly over the area of fullness. Exquisite medial joint line tenderness and medial soft tissue tenderness. Tolerates passive ROM with mild discomfort from 10-90 but significantly increased active ROM. Knee is stable to varus and valgus stress although causes pain., worse with valgus stress. Results Last Vital Signs Temp 37.1 C 06/27/25 14:42 Pulse 80 06/27/25 17:10 Resp 18 06/27/25 17:10 BP 150/84 H 06/27/25 14:42 Pulse Ox 97 06/27/25 17:10 Labs 06/27/25 15:19 06/27/25 15:19 Labs: Laboratory Results - last 24 hr 06/27/25 06/27/25 15:19 16:11 WBC 7.38 RBC 4.13 L Hgb 13.6 Hct 38.7 L MCV 94 MCH 32.9 MCHC 35.1 RDW 11.9 Plt Count 210 MPV 8.9 Immature Gran % 0.4 Neutrophils % 58.1 Lymphocytes % 27.6 Monocytes % 10.8 Eosinophils % 2.6 Basophils % 0.5 Nucleated RBC % 0.0 Absolute Neutrophils 4.28 Absolute Lymphocytes 2.04 Absolute Monocytes 0.80 Absolute Eosinophils 0.19 Absolute Basophils 0.04 ESR 10 Sodium 139 Potassium 4.1 Chloride 101 Carbon Dioxide 27.7 Anion Gap 10.3 BUN 14 Creatinine 1.0 Est GFR (CKD-EPI 2020) 78.98 Glucose 94 Uric Acid 6.6 Calcium 9.1 Magnesium 2.1 Total Bilirubin 0.5 AST 29 ALT 39 Alkaline Phosphatase 44 L C-Reactive Protein < 0.50 Total Protein 7.8 Albumin 4.0 Fluid Crystals Cancelled Fluid Crystal Source Cancelled Imaging Imaging Studies: XR of the left knee shows mild-moderate joint space narrowing medially. There is a primary area of dystrophic calcification seen medial to the medial femoral epicondyle. Procedures Joint Aspiration/Injection Joint Asp./Inject. 1: Time out performed: Yes Side of body: left Ultrasound guidance: No Skin prep: other (alcohol) Local anesthesia used: other (ethyl chloride spray) Needle size used: 22G Medication injected, if any: other (0.25% Bupivacaine and 80mg Depo- Medrol) Amount of medication injected (ml): 10 Patient tolerated procedure: well Complications: none Additional comments: Noted improvement with injection
[2025-06-29 10:44] LABS: Lyme Ab w Rflx to Lyme Confirm Negative (Negative)
[2025-07-02 20:51] LABS: B. miyamotoi PCR Negative (Negative); Babesia divergens/MO-1 Negative (Negative); Ehrlichia muris eauclairensis Negative (Negative)
--- NOTE | 2025-07-04 08:30 | NUR.NOTE ---
Access chart to determine antibiotic on discharge for Lyme antibody. Result given to provider. Nursing Note:
--- NOTE | 2025-07-04 08:35 | W.ED.FU ---
Date of service: 07/04/25 Time of Service: 08:35 Follow Up Plan: Received culture for Lyme panel from this patient's ED visit for his knee pain, tick and Lyme panel were negative, no follow-up or interventions required. Sophia Patricio MD
== END 2025-06-27 17:21 | disposition home or self-care (01) ==
PROVIDERS: Emergency Provider Emergency Medicine; PCP Family Medicine
DX: M25.562 Pain in left knee (principal)
CPT/HCPCS: 99283 ×2; 20610; 36415; 73562; 80053; 85652; 87798; 83735; 84550; 85025; 86140; 86618; 89060; J0665; J1010; J7512

== ENCOUNTER → 2025-07-07 09:56 | Outpatient (BNVA) | payer MEDICARE, SELFPAY | PROVIDERS: PCP Family Medicine; Referring Provider Family Medicine; Visit Provider Physician Assistant | DX: M25.562 Pain in left knee (principal) | CPT/HCPCS: 99213 ==